=== PATIENT | male | born 1930 | race Caucasian/White ===

== ENCOUNTER 2016-09-28 15:14 | Outpatient (CLI) ==
[2016-06-22 00:29] VITALS: BMI 26.0
--- NOTE | 2016-09-28 16:41 | DI ---
EXAM: Two views of the chest. History: Left lower lobe lung mass. Comparison: Chest radiograph 06/16/2016 Comparison: Chest radiograph 06/25/2016, chest CT 06/21/2016 Findings: Heart is borderline enlarged. Emphysema again noted. Atherosclerotic vascular calcifica tions. Tortuous thoracic aorta. Prominent left hilar shadow and left lower lobe mass or infiltrate . There may be aneurysmal dilatation of the thoracic aorta. Visualized osseous structures unchange d. Impression: Prominent left hilar shadow could indicate lymphadenopathy. Left lower lobe mass or in filtrate may be more prominent. Emphysema.
== END 2016-09-28 15:15 | disposition home or self-care (01) ==
LOC: RAD 15:14
PROVIDERS: ATTEND Internal Medicine Pulmonary Disease
DX: R91.8 Other nonspecific abnormal finding of lung field (principal)

== ENCOUNTER 2016-10-19 15:36 | Inpatient (IN) ==
[2016-10-19] MEDS ORDERED: TYLENOL PO PRN (16:02)
[2016-10-19] MEDS ORDERED: NITROSTAT SL PRN (16:02)
[2016-10-19] MEDS ORDERED: ATROPINE SULFATE PFS IVP PRN (16:02)
[2016-10-19] MEDS ORDERED: MORPHINE 4 MG/ML SYRINGE IVP PRN (16:02)
[2016-10-19] MEDS ORDERED: VISTARIL INJ IM PRN (16:02)
[2016-10-19 16:26] VITALS: BMI 25.7
[2016-10-19 16:38] LABS: BASOPHILS % (AUTO) 0.3 % (0.0-3.0); EOSINOPHILS # (AUTO) 0.2 K/ul (0.0-0.7); EOSINOPHILS % (AUTO) 1.8 % (0.0-7.0); HEMATOCRIT 39.4 % (42.0-52.0); HEMOGLOBIN 12.9 g/dl (14.0-18.0); IMMATURE GRANULOCYTE % (AUTO) 0.4 % (0.0-5.0); LYMPHOCYTES # (AUTO) 1.5 K/uL (0.60-3.4); LYMPHOCYTES % (AUTO) 14.9 (10.0-50.0); MEAN CORPUSCULAR HEMOGLOBIN 29.7 pg (27.0-31.0); MEAN CORPUSCULAR HGB CONC 32.7 (31.8-35.4); MEAN CORPUSCULAR VOLUME 90.6 fl (80.0-94.0); MONOCYTES # (AUTO) 0.9 K/uL (0.4-2.0); MONOCYTES % (AUTO) 8.3 (0-10); NEUTROPHILS # (AUTO) 7.7 K/ul (2.0-6.9); NEUTROPHILS % (AUTO) 74.3; PLATELET COUNT 255 10^3/uL (140-440); RED BLOOD COUNT 4.35 10^6/ul (4.70-6.10); WHITE BLOOD COUNT 10.28 K/ul (4.2-10.2)
[2016-10-19 16:55] LABS: FLU INTERNAL QC INTERNAL QC VALID; RAPID FLU A NEGATIVE (NEGATIVE); RAPID FLU B NEGATIVE (NEGATIVE)
[2016-10-19 17:00] LABS: ALBUMIN 3.2 g/dL (3.4-5.0); ALBUMIN/GLOBULIN RATIO 0.84; ANION GAP 12.7; BILIRUBIN,TOTAL 1.29 mg/dL (0.00-1.20); BUN/CREATININE RATIO 16.96; CALCIUM 8.8 mg/dL (8.2-10.2); CREATININE 1.12 mg/dL (0.60-1.10); POTASSIUM 3.7 mmol/L (3.5-5.1); TROPONIN I 0.02 ng/ml (0.0000-0.4000)
[2016-10-19] MEDS ORDERED: NON-FORMULARY MEDICATION (Warfarin Sodium [Coumadin] 4 MG) PO SCH ×22 (17:00)
[2016-10-19] MEDS: SOLU-MEDROL 40 MG IVP SCH ×2 (17:10→21:34)
[2016-10-19] MEDS: ROCEPHIN 1 GM in SODIUM CHLORIDE 100 ML IV SCH (17:10)
[2016-10-19] MEDS: SODIUM CHLORIDE 1,000 ML IV SCH (17:10)
[2016-10-19] MEDS: COUMADIN PO SCH (17:11)
--- NOTE | 2016-10-19 17:21 | CT ---
EXAM: CT of the chest without contrast History: Cough, short of breath Comparison: Chest radiograph 09/28/2016, chest CT 06/21/2016 Technique: Multiplanar CT images through the thorax were obtained without the administration of IV contrast Findings: Evaluation is limited due to the lack of contrast administration. Heart is mildly enlarg ed. Trace pericardial fluid. Coronary calcifications. Slight interval increase in size of multiple mediastinal lymph nodes measuring up to 1.5 cm. No axillary adenopathy. Evaluation for hilar lymp h nodes is limited due to the lack of contrast administration. There is soft tissue fullness within the right hilar region. Increasing size of left lower lobe mass-like area now containing a central area of density which is probably necrosis. This now measures 4.8 cm x 4.1 cm. The left pleural effusion is again noted and is small. Emphysema again appreciated. Micronodular infiltrates again seen within the rest of the left lower lobe. No pneumothorax. Trace right pleural effusion. Within the visualized upper abdomen, cholelithiasis. Atrophic left kidney. No acute osseous abnorma lities. Sternotomy wires. Impression: 1. Increasing size of left lower lobe lung mass which is suspicious for malignancy. Further evalua tion recommended. 2. Patchy left lower lobe micronodular infiltrates could be infectious or inflammatory or malignant . 3. Small left pleural effusion and trace right pleural effusion. 4. Emphysema. 5. Cholelithiasis. 6. Coronary artery disease. 7. Atrophic left kidney. 8. Mediastinal lymphadenopathy and fullness within the right hilar region could be malignant.
[2016-10-19 17:29] LABS: ABG BASE EXCESS 5 (-2.0-2.0); ABG HCO3 28 (22.0-26.0); ABG PCO2 34.3 mmHg (35-45); ABG PH 7.521 (7.35-7.45); ABG TCO2 29 (22.0-28.0)
[2016-10-19 18:51] LABS: BILIRUBIN,URINE Negative (NEGATIVE); KETONES,URINE Negative (NEGATIVE); LEUKOCYTE ESTERASE ,URINE Negative (NEGATIVE); NITRITE,URINE Negative (NEGATIVE); PROTEIN,URINE Negative (NEGATIVE); URINE, BLOOD Trace-intact (NEGATIVE)
[2016-10-19 19:02] LABS: ADD URINE MICROSCOPIC YES
[2016-10-19] MEDS: HYTRIN PO SCH (20:38)
[2016-10-19] MEDS: DUONEB NEB SCH (21:20)
[2016-10-20 00:30] LABS: BASOPHILS % (AUTO) 0.1 % (0.0-3.0); HEMATOCRIT 37.1 % (42.0-52.0); HEMOGLOBIN 12.2 g/dl (14.0-18.0); IMMATURE GRANULOCYTE % (AUTO) 0.4 % (0.0-5.0); LYMPHOCYTES # (AUTO) 0.6 K/uL (0.60-3.4); LYMPHOCYTES % (AUTO) 6.1 (10.0-50.0); MEAN CORPUSCULAR HEMOGLOBIN 29.1 pg (27.0-31.0); MEAN CORPUSCULAR HGB CONC 32.9 (31.8-35.4); MEAN CORPUSCULAR VOLUME 88.5 fl (80.0-94.0); MONOCYTES # (AUTO) 0.1 K/uL (0.4-2.0); MONOCYTES % (AUTO) 0.9 (0-10); NEUTROPHILS % (AUTO) 92.5; PLATELET COUNT 231 10^3/uL (140-440); RED BLOOD COUNT 4.19 10^6/ul (4.70-6.10); WHITE BLOOD COUNT 9.77 K/ul (4.2-10.2)
[2016-10-20 01:25] LABS: ALBUMIN/GLOBULIN RATIO 0.79; ANION GAP 14.6; BILIRUBIN,TOTAL 1.14 mg/dL (0.00-1.20); BUN/CREATININE RATIO 18.09; CALCIUM 8.9 mg/dL (8.2-10.2); CREATININE 1.05 mg/dL (0.60-1.10); POTASSIUM 3.6 mmol/L (3.5-5.1); TOTAL PROTEIN 6.8 g/dL (5.8-8.1)
[2016-10-20 01:32] LABS: TROPONIN I 0.028 ng/ml (0.0000-0.4000)
[2016-10-20] MEDS: DUONEB NEB SCH ×3 (04:45→21:38)
[2016-10-20] MEDS: PROTONIX PO SCH (05:29)
[2016-10-20] MEDS: LASIX TAB PO SCH (05:29)
[2016-10-20] MEDS: SOLU-MEDROL 40 MG IVP SCH ×3 (05:29→21:03)
[2016-10-20] MEDS: ASPIRIN EC PO SCH (08:46)
[2016-10-20] MEDS: ROCEPHIN 1 GM in SODIUM CHLORIDE 100 ML IV SCH (08:46)
[2016-10-20] MEDS: NORVASC PO SCH (08:46)
[2016-10-20] MEDS: LIPITOR PO SCH (08:46)
[2016-10-20] MEDS: K-DUR PO SCH (08:46)
[2016-10-20] MEDS ORDERED: ATORVASTATIN PO SCH ×21 (09:00)
[2016-10-20] MEDS ORDERED: AMLODIPINE PO SCH ×21 (09:00)
[2016-10-20] MEDS ORDERED: NON-FORMULARY MEDICATION (Potassium Chloride [K-Tab Er] 1 TAB) PO SCH (09:00)
[2016-10-20] MEDS: COUMADIN PO SCH (16:28)
[2016-10-20] MEDS: SODIUM CHLORIDE 1,000 ML IV SCH (18:03)
[2016-10-20] MEDS: HYTRIN PO SCH (20:55)
[2016-10-21] MEDS: DUONEB NEB SCH ×3 (04:58→21:16)
[2016-10-21] MEDS: SOLU-MEDROL 40 MG IVP SCH ×3 (05:18→20:04)
[2016-10-21] MEDS: LASIX TAB PO SCH (06:57)
[2016-10-21] MEDS: PROTONIX PO SCH (06:57)
[2016-10-21 07:51] LABS: BASOPHILS % (AUTO) 0.1 % (0.0-3.0); HEMATOCRIT 35.5 % (42.0-52.0); HEMOGLOBIN 11.8 g/dl (14.0-18.0); IMMATURE GRANULOCYTE % (AUTO) 0.5 % (0.0-5.0); LYMPHOCYTES # (AUTO) 0.6 K/uL (0.60-3.4); LYMPHOCYTES % (AUTO) 4.4 (10.0-50.0); MEAN CORPUSCULAR HEMOGLOBIN 29.5 pg (27.0-31.0); MEAN CORPUSCULAR HGB CONC 33.2 (31.8-35.4); MEAN CORPUSCULAR VOLUME 88.8 fl (80.0-94.0); MONOCYTES # (AUTO) 0.5 K/uL (0.4-2.0); MONOCYTES % (AUTO) 3.6 (0-10); NEUTROPHILS # (AUTO) 11.5 K/ul (2.0-6.9); NEUTROPHILS % (AUTO) 91.4; PLATELET COUNT 227 10^3/uL (140-440); WHITE BLOOD COUNT 12.53 K/ul (4.2-10.2)
[2016-10-21 08:24] LABS: ALBUMIN 2.9 g/dL (3.4-5.0); ALBUMIN/GLOBULIN RATIO 0.78; ANION GAP 15.2; BILIRUBIN,TOTAL 0.45 mg/dL (0.00-1.20); BUN/CREATININE RATIO 26.31; CALCIUM 8.8 mg/dL (8.2-10.2); CREATININE 1.14 mg/dL (0.60-1.10); POTASSIUM 4.2 mmol/L (3.5-5.1); TOTAL PROTEIN 6.6 g/dL (5.8-8.1)
[2016-10-21] MEDS: ROCEPHIN 1 GM in SODIUM CHLORIDE 100 ML IV SCH (09:04)
[2016-10-21] MEDS: ASPIRIN EC PO SCH (09:04)
[2016-10-21] MEDS: LIPITOR PO SCH (09:04)
[2016-10-21] MEDS: NORVASC PO SCH (09:04)
[2016-10-21] MEDS: K-DUR PO SCH (09:05)
[2016-10-21] MEDS ORDERED: LASIX TAB PO SCH (11:20)
[2016-10-21] MEDS: LOVENOX SUBCUT SCH (12:35)
[2016-10-21] MEDS: COUMADIN PO SCH (17:02)
[2016-10-21] MEDS: HYTRIN PO SCH (20:03)
[2016-10-21] MEDS: SODIUM CHLORIDE 1,000 ML IV SCH (21:32)
[2016-10-22 04:46] LABS: BASOPHILS % (AUTO) 0.1 % (0.0-3.0); HEMATOCRIT 34.9 % (42.0-52.0); HEMOGLOBIN 11.4 g/dl (14.0-18.0); IMMATURE GRANULOCYTE % (AUTO) 0.5 % (0.0-5.0); LYMPHOCYTES # (AUTO) 0.7 K/uL (0.60-3.4); LYMPHOCYTES % (AUTO) 4.9 (10.0-50.0); MEAN CORPUSCULAR HEMOGLOBIN 29.2 pg (27.0-31.0); MEAN CORPUSCULAR HGB CONC 32.7 (31.8-35.4); MEAN CORPUSCULAR VOLUME 89.5 fl (80.0-94.0); MONOCYTES # (AUTO) 0.5 K/uL (0.4-2.0); MONOCYTES % (AUTO) 3.5 (0-10); NEUTROPHILS # (AUTO) 13.2 K/ul (2.0-6.9); PLATELET COUNT 243 10^3/uL (140-440); WHITE BLOOD COUNT 14.56 K/ul (4.2-10.2)
[2016-10-22 05:11] LABS: ALBUMIN 2.8 g/dL (3.4-5.0); ALBUMIN/GLOBULIN RATIO 0.9; BILIRUBIN,TOTAL 0.39 mg/dL (0.00-1.20); BUN/CREATININE RATIO 28.57; CALCIUM 8.3 mg/dL (8.2-10.2); CREATININE 1.05 mg/dL (0.60-1.10); TOTAL PROTEIN 5.9 g/dL (5.8-8.1)
[2016-10-22] MEDS: DUONEB NEB SCH ×2 (05:11→14:01)
[2016-10-22] MEDS: PROTONIX PO SCH (05:29)
[2016-10-22] MEDS: SOLU-MEDROL 40 MG IVP SCH ×2 (05:29→12:50)
[2016-10-22] MEDS ORDERED: LASIX TAB PO SCH (06:30)
[2016-10-22] MEDS: LOVENOX SUBCUT SCH (08:31)
[2016-10-22] MEDS: NORVASC PO SCH (08:31)
[2016-10-22] MEDS: ASPIRIN EC PO SCH (08:31)
[2016-10-22] MEDS: K-DUR PO SCH (08:31)
[2016-10-22] MEDS: LIPITOR PO SCH (08:31)
[2016-10-22] MEDS: ROCEPHIN 1 GM in SODIUM CHLORIDE 100 ML IV SCH (08:31)
[2016-10-22 09:51] VITALS: BP 141/80; TEMP 96.9
--- NOTE | 2016-10-22 11:12 | RS.SLPCNOT ---
Speech Case Note Date of Note: 10/22/16 Title: Swallow screen Note: ADVERTISING JOB TITLES reviewed pt's chart and medical hx. Recent pnuemonia, and possible CA in lungs were significant for screening pt for risk of aspiration. ADVERTISING JOB TITLES attempted to observe and question pt regarding PO intake. Pt was in shower when ST arrived. ADVERTISING JOB TITLES discussed risks for aspiration with nursing, RN and FEED RESEARCH TECHNICIAN. RN reported no concerns. FEED RESEARCH TECHNICIAN reported pt coughing with medications, requiring a few seconds to recover. No significant findings with lung sounds, reports of diminished sounds. Pt has been tolerating a regular diet texture with thin liquids for three days in hospital with no reports of aspiration and no changes in lung sounds. ADVERTISING JOB TITLES requested nursing staff to observe pt with PO intake, question pt about swallowing difficulty and report any concerns to ADVERTISING JOB TITLES. ADVERTISING JOB TITLES to assess pt if needed tomorrow this date.
--- NOTE | 2016-10-22 14:12 | PCM.PROG ---
Attending Provider: ATTENDING PROVIDER: Dr. JUICE LR DATE OF SERVICE: 10/22/16 SUBJECTIVE: This 86 year old WHITE/ M was hospitalized 10/19/16. The patient is lying in bed. He states he is doing much better today. Cough is less. He has been up and about without any problems. Discussion carried out with the patient as below. REVIEW OF SYSTEMS: CONSTITUTIONAL: No fever, no chills. ENDOCRINE: No weight loss or weight gain. HEENT: No sinus drainage, no sore throat. CVS: No angina symptoms. No CHF symptoms. No palpitations. No atypical chest pain for CAD. No shortness of breath. RESPIRATORY: No cough, no hemoptysis. GI: No melena. No abdominal pain. No nausea, no vomiting. : No hematuria. No polyuria. SKIN: No rash. No wounds. MUSCULOSKELETAL: No pain. GARDEN TRACTOR MECHANIC: No blackout, no dizziness. No headache. No double vision. PSYCHIATRIC: Not anxious; no depression. No suicidal thoughts. No homicidal thoughts. PHYSICAL EXAMINATION: GENERAL: Sitting up in bed in no distress. VITAL SIGNS: Temperature 96.9 F, Pulse 92, Respiratory Rate 20, BP 141/80, Pulse Ox 97% HEENT: Normocephalic, atraumatic. Mucosa is dry, pallor positive. NECK: No JVP, no carotid bruit. No lymphadenopathy. CARDIAC: S1, S2, no S3. No murmur, gallop or regurgitation. LUNGS: Decreased entry; crackles. ABDOMEN: Soft, non-tender. Bowel sounds active. No rigidity, guarding or CVA tenderness. EXTREMITIES: No clubbing, cyanosis or edema. NEUROLOGIC: Awake, alert and oriented x3. LYMPHATIC: No palpable lymph nodes SKIN: Not dry. Intact. MUSCULOSKELETAL: No joint swelling. LAB REVIEW: 10/22/16 04:43 10/22/16 04:43 10/22/16 04:43: WBC 14.56 H, RBC 3.90 L, Hgb 11.4 L, Hct 34.9 L, MCV 89.5, MCH 29.2, MCHC 32.7, RDW Coeff of Meli 15.2 H, Plt Count 243, Immature Gran % (Auto) 0.5, Neut % (Auto) 91.0, Lymph % (Auto) 4.9 L, Boyle % (Auto) 3.5, Eos % (Auto) 0.0, Baso % (Auto) 0.1, Immature Gran # (Auto) 0.1, Neut # 13.2 H, Lymph # 0.7, Boyle # 0.5, Eos # 0.0, Baso # 0.0, Sodium 143, Potassium 4.0, Chloride 105, Carbon Dioxide 30, Anion Gap 12.0, BUN 30 H, Creatinine 1.05, Estimated GFR ( MDRD) 67.00, BUN/Creatinine Ratio 28.57, Glucose 234 H, Calcium 8.3, Total Bilirubin 0.39, AST 23, ALT 23, Alkaline Phosphatase 68, Total Protein 5.9, Albumin 2.8 L, Globulin 3.1, Albumin/Globulin Ratio 0.90 ASSESSMENT: 1. COPD exacerbation secondary to pneumonia 2. Increase in size of lung mass, which is most likely cancer 3. CAD 4. CABG 5. Hypertension 6. Dyslipidemia 7. Depression PLAN: 1. Discharge the patient home. 2. Keflex 500 mg b.i.d. for 7 more days. 3. Duonebs t.i.d. for one month. 4. Medrol Dosepak. 5. Encouraged the patient to drink lots of fluids. 6. The patient is to see Dr. Kingston, appointment exists but needs to be moved up. Plan and coordination of the patient's care discussed in the presence of Quality Engineer and nurse. EDUCATION: Discussion with the patient concerning increased size of lung mass and the possibility it is cancer; the need to move appointment with Dr. Kingston up. Also , discussed with the patient concerning the need for neb treatments. The patient voices understanding and is agreeable to comply with this advice and case management will set up for treatments and equipment needed. CONDITION: Stable SCRIBED BY: OTONIEL LOUISE, Head Grinder scribed while in presence of service performed by Dr. JUICE LR on 10/22/16 ([id number])
--- NOTE | 2016-10-22 15:31 | PN ---
DATE OF SERVICE: 10/21/16 SUBJECTIVE: The patient's Social Sciences Chair from the [employer] is in the room. Wanted to discuss condition. Otherwise still having cough, get phlegm yellow and green, no fever or chills. Getting out of bed to chair without any problem. REVIEW OF SYSTEMS: CONSTITUTIONAL: No fever, no chills. HEENT: Normal. ENDOCRINE: No weight gain, no weight loss. CVS: No angina symptoms. No CHF symptoms. No palpitations. No atypical chest pain for CAD. No shortness of breath. No PND, no orthopnea. RESPIRATORY: Cough, no hemoptysis. GI: No nausea, no vomiting. No abdominal pain. : No hematuria. No polyuria. MUSCULOSKELETAL:. No joint swelling. PSYCHIATRIC: Not anxious. No depression. No suicidal thoughts. No homicidal thoughts. SKIN: Intact. No rash. PHYSICAL EXAMINATION: V/S: Blood pressure 130/76, respiratory rate 18, heart rate 107 and temperature 96.7. HEENT: Normocephalic, atraumatic. Ears, eyes, nose and throat normal. Mucosa dry. NECK: Supple. No JVD, no carotid bruit. No lymphadenopathy. LUNGS: Decreased basilar crackles. No rales or rhonchi. HEART: S1, S2 normal. No S3. No murmur, gallop or regurgitation. ABDOMEN: Soft, nontender. Bowel sounds active. No rigidity. No rebound or guarding. No CVA tenderness. EXTREMITIES: No clubbing, cyanosis or pedal edema. MUSCULOSKELETAL: No joint swelling. NEUROLOGIC: Awake, alert, oriented times three. No focal deficit. LYMPHATIC: No lymph nodes palpable. SKIN: Intact. Dry LABS: Sodium 142, potassium 4.2, chloride 104, bicarb 27, BUN 30, creatinine 1.14, WBC 12.53, hgb 11.8. hct 35.5 and plt count 227. ASSESSMENT: 1. Community acquired pneumonia, left lower lobe 2. 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 Hypertension 4. Dyslipidemia 5. Coronary artery disease 6. CABG PLAN: 1. Continue the Rocephin 2. Azithromycin 3. Solu-Medrol 4. DUO NEBS 5. Out of bed to chair 6. Decrease the Lasix to 20mg TIME SPENT: More than 30 minutes MTDD
--- NOTE | 2016-10-22 15:46 | CM.DICTOOL ---
ADMISSION: 10/19/16 15:36 DISCHARGE: 10/22/16 DATE OF SERVICE: 10/22/16 FINAL DIAGNOSIS ENLARGING LUNG MASS - LEFT LOWER LUNG (4.8X4.1 CMS) (DR. BURCIAGA) FEVER, LEUKOCYTOSIS COPD/EMPHYSEMA CAD S/P 3 VESSEL CABG ATRIAL FIBRILLATION HYPERTENSION DYSLIPIDEMIA HYPOTHYROIDISM CVA DVT BY HISTORY CATARACT EXTRACTIONS TONSILLECTOMY VASECTOMY APPENDECTOMY LAST VITALS Temp Pulse Resp BP Pulse Ox 96.9 F L 92 H 20 141/80 H 97 10/22/16 09:51 10/22/16 09:51 10/22/16 09:51 10/22/16 09:51 10/22/16 09:51 ACTIVE MEDICATIONS Albuterol/Ipratropium (Duoneb) 1 vial NEB RTTID [facility] Last Admin: 10/22/16 14:01 Dose: 1 vial Amlodipine Besylate (Norvasc) 5 mg PO DAILY [facility] Last Admin: 10/22/16 08:31 Dose: 5 mg Aspirin (Aspirin Ec) 81 mg PO DAILYWM [facility] Last Admin: 10/22/16 08:31 Dose: 81 mg Atorvastatin Calcium (Lipitor) 20 mg PO DAILY [facility] Last Admin: 10/22/16 08:31 Dose: 20 mg Atropine Sulfate (Atropine Sulfate Pfs) 0.5 mg IVP ONCE PRN PRN Reason: Symptomatic Bradycardia Furosemide (Lasix Tab) 40 mg PO QDAC [facility] Last Admin: 10/22/16 05:29 Dose: 20 mg Nitroglycerin (Nitrostat) 0.4 mg SL Q5MIN X 3 DOSES PRN PRN Reason: Chest Pain Pantoprazole Sodium (Protonix) 40 mg PO QDAC [facility] Last Admin: 10/22/16 05:29 Dose: 40 mg Potassium Chloride (K-Dur) 20 meq PO DAILYWM [facility] Last Admin: 10/22/16 08:31 Dose: 20 meq Terazosin HCl (Hytrin) 5 mg PO BEDTIME [facility] Last Admin: 10/21/16 20:03 Dose: 5 mg Warfarin Sodium (Coumadin) 4 mg PO QPM [facility] Last Admin: 10/21/16 17:02 Dose: 4 mg DENOTES MEDICATIONS ADDED DURING THIS STAY THAT WILL BE CONTINUED AT DISCHARGE ALLERGIES No Known Allergies Allergy (Verified 06/21/16 21:48) NEW PRESCRIPTIONS: 1) ALBUTEROL/IPRATROPIUM (DUONEBS), TAKE ONE BREATHING TREATMENT THREE TIMES DAILY FOR ONE MONTH 2) MEDROL DOSE JYOTSNA, TAKE DIRECTED WITH FOOD 3) KEFLEX 500 MG, TAKE ONE TABLET BY MOUTH TWICE DAILY FOR 7 (SEVEN) DAYS SMOKING: NONSMOKER DISEASE SPECIFIC EDUCATION: FEVER LUNG MASS FOLLOW UP WITH DR. BURCIAGA FOLLOW UP THROUGH THE OFFICE NEBULIZER TREATMENTS HOME MEDICATIONS NEW MEDICATIONS LAB REVIEW: 10/22/16 04:43 10/22/16 04:43 10/22/16 04:43: WBC 14.56 H, RBC 3.90 L, Hgb 11.4 L, Hct 34.9 L, MCV 89.5, MCH 29.2, MCHC 32.7, RDW Coeff of Meli 15.2 H, Plt Count 243, Immature Gran % (Auto) 0.5, Neut % (Auto) 91.0, Lymph % (Auto) 4.9 L, Shackelford % (Auto) 3.5, Eos % (Auto) 0.0, Baso % (Auto) 0.1, Immature Gran # (Auto) 0.1, Neut # 13.2 H, Lymph # 0.7, Shackelford # 0.5, Eos # 0.0, Baso # 0.0, Sodium 143, Potassium 4.0, Chloride 105, Carbon Dioxide 30, Anion Gap 12.0, BUN 30 H, Creatinine 1.05, Estimated GFR ( MDRD) 67.00, BUN/Creatinine Ratio 28.57, Glucose 234 H, Calcium 8.3, Total Bilirubin 0.39, AST 23, ALT 23, Alkaline Phosphatase 68, Total Protein 5.9, Albumin 2.8 L, Globulin 3.1, Albumin/Globulin Ratio 0.90 PLAN: DISCHARGE HOME TODAY RETURN TO SEE DR. LR IN 5-7 DAYS. PLEASE CALL TO SCHEDULE YOUR APPOINTMENT ([phone]) KEEP YOUR SCHEDULED APPOINTMENT WITH DR. BURCIAGA ON 10/25/16 AT 10:30 A.M. CONTINUE YOUR HOME MEDICATIONS PER LIST PROVIDED BY THE NURSING STAFF NEW PRESCRIPTIONS: 1) ALBUTEROL/IPRATROPIUM (DUONEBS), TAKE ONE BREATHING TREATMENT THREE TIMES DAILY FOR ONE MONTH 2) MEDROL DOSE JYOTSNA, TAKE DIRECTED WITH FOOD 3) KEFLEX 500 MG, TAKE ONE TABLET BY MOUTH TWICE DAILY FOR 7 (SEVEN) DAYS [facility] WILL DELIVER YOUR NEBULIZER TO YOUR HOME ([phone]) ACTIVITY: GET PLENTY OF REST AT HOME. GRADUALLY INCREASE YOUR ACTIVITY LEVEL ACCORDING TO YOUR TOLERATION. DIET: HEALTHY HEART STAY WELL HYDRATED. DRINK PLENTY OF WATER. SUMMARY: THE PATIENT IS ALERT AND ORIENTED X3. HE CURRENTLY RESIDES AT HOME ALONE. 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 HE IS INDEPENDENT WITH ADL'S. HE TELLS ME HE DOES NOT RELY ON ANY DME AT THIS TIME. HE DESIRES TO RETURN TO HIS HOME AT DISCHARGE. HIS SKIN TURGOR IS INTACT AND WITHOUT DECUBITUS ULCERS AT DISCHARGE. HE IS AFEBRILE AND STABLE FOR DISCHARGE HOME. HE IS AWARE AND AGREEABLE FOR DISCHARGE TODAY. JUICE LR M.D.
--- NOTE | 2016-10-22 15:53 | PN ---
DATE OF SERVICE: 10/20/16 SUBJECTIVE: The patient was admitted with the bronchitis and the COPD. CAT scan showed the pneumonia, community acquired and also questionable lung cancer which was discussed with the patient. The patient is some sad but he said that he was expecting something. REVIEW OF SYSTEMS: CONSTITUTIONAL: No fever, no chills. HEENT: Normal. ENDOCRINE: No weight gain, no weight loss. CVS: No angina symptoms. No CHF symptoms. No palpitations. No atypical chest pain for CAD. No shortness of breath. No PND, no orthopnea. RESPIRATORY: Still coughing and getting a lot phlegm, no hemoptysis. GI: No nausea, no vomiting. No abdominal pain. : No hematuria. No polyuria. MUSCULOSKELETAL:. No joint swelling. PSYCHIATRIC: Not anxious. No depression. No suicidal thoughts. No homicidal thoughts. SKIN: Intact. No rash. PHYSICAL EXAMINATION: V/S: blood pressure 123/73, respiratory rate 15, heart rate 91 and temperature 97.0. HEENT: Normocephalic, atraumatic. Ears, eyes, nose and throat normal. Mucosa dry. Pallor positive. No icterus. NECK: Supple. No JVD, no carotid bruit. No lymphadenopathy. LUNGS:Decreased and basilar crackles. No rales or rhonchi. HEART: S1, S2 normal. No S3. No murmur, gallop or regurgitation. ABDOMEN: Soft, nontender. Bowel sounds active. No rigidity. No rebound or guarding. No CVA tenderness. EXTREMITIES: No clubbing, cyanosis or pedal edema. MUSCULOSKELETAL: No joint swelling. NEUROLOGIC: Awake, alert, oriented times three. No focal deficit. LYMPHATIC: No lymph nodes palpable. SKIN: Intact. LABS: WBC 9.77, hgb 12.2, hct 37.1, plt count 231, sodium 139, potassium 3.6, chloride 101, bicarb 27, BUN 19, creatinine 1.05 and glucose 209 ASSESSMENT: 1. Left lower lobe pneumonia, community acquired 2. Lung mass, most likely suspicion for the malignancy with lymphadenopathy 3. Anemia 4. Hypertension 5. Dyslipidemia 6. Coronary artery disease 7. CABG PLAN: 1. Continue Rocephin, Azithromycin, Lovenox 2. DUO NEBS 3. Out of bed to chair activity as tolerated. TIME SPENT: More than 30 minutes MTDD
--- NOTE | 2016-10-25 09:57 | HP ---
DATE OF SERVICE: 10/19/16 REASON FOR HOSPITALIZATION/HISTORY OF PRESENT ILLNESS: Been having fever, not feeling good. Still coughing, congestion, getting sputum yellow/green. Sinus drainage, some shortness of breath. Decreased urine and not eating much. REVIEW OF SYSTEMS: CONSTITUTIONAL: Fever and fatigue. HEENT: Sinus drainage, no sore throat. RESPIRATORY: Cough, no congestion. CARDIOVASCULAR: No atypical chest pain for coronary artery disease. No angina , CHF symptoms, palpitations. Shortness of breath. GASTROINTESTINAL: No melena or abdominal pain. No GERD. GENITOURINARY: No hematuria, no prostatism, no polyuria. FOOD PRODUCTION ASSOCIATE: No blackout, no dizziness, no headache, no double vision. Gait: Slow. MUSCULOSKELETAL: Osteoarthritis pain, no joint swelling. ENDOCRINE: No weight loss, no weight gain. SKIN: Not dry, no rash. PSYCHIATRIC: Anxious, no depression, no suicidal thoughts, no homicidal thoughts. SOCIAL HISTORY: Marital Status: lives alone. Alcohol Usage: No. Tobacco Usage: No. Family History not significant. PAST SURGICAL HISTORY: CABG 2007 Bilateral cataract Appendectomy Tonsillectomy Hernia repair Hemorrhoid surgery MEDICATIONS: Hytrin 5mg PO daily K-Tab one PO daily Amlodipine-Atorvast 5-20mg PO daily Coumadin 4mg PO QPM Lasix 40mg PO QDAC Nitroglycerin 0.4mg SL PRN Protonix 40mg PO daily ALLERGIES: None PHYSICAL EXAMINATION: V/S: Pulse 70, blood pressure 122/58, temperature 100 and pulse ox 95%. GENERAL APPEARANCE: Oriented times three. Sick looking male sitting in chair. HEENT: Normal. NECK: No JVP, no bruits. RESPIRATORY: Clear with decreased basal crackles. CARDIOVASCULAR: S1, S2, no S3, no murmurs. No cyanosis, clubbing. No ascites. GI/ABDOMEN: No tenderness. Bowel sounds are active. EXTREMITIES: edema, pulses +1, equal. FOOD PRODUCTION ASSOCIATE: Deep tendon reflexes, sensory, motor and gait all normal. RECTAL: Colonoscopy 06/22 Dr. Parish VIDAL. PROSTATE: 11/19 (0.5). LABS: INR 2.4 ASSESSMENT: 1. Fever rule out pneumonia and UTI 2. Hypertension 3. Coronary artery disease, status post stent 4. Congestive heart failure 5. Dyslipidemia 6. History of CVA 7. History of DVT 8. Diabetes Mellitus, type 2 9. History of Atrial fibrillation 10.PPM PLAN: 1. Admit to regular floor with telemetry protocol 2. CBC, CMP, U/A , D-dimer and ABG on room air 3. Rapid flu A7B 4. CT chest without contrast 5. IV fluids at 40ml per hour 6. Diet cardiac 7. Rocephin 1 gram IV daily 8. DUO NEBS three times a day 9. Solu-Medrol 40 IV Q 8 hours 10. Continue home medications. TIME SPENT: More than 70 minutes. MTDD
--- NOTE | 2016-10-25 13:19 | DS ---
DATE OF SERVICE: 10/22/16 FINAL DIAGNOSIS: 1. COPD exacerbation secondary to the pneumonia and enlarged lung mass, left lower lung 4.8x4.1cm as followed by Dr. Kingston 2. Coronary artery disease status post CABG 3. Atrial fibrillation 4. Hypertension 5. Dyslipidemia 6. Hypothyroidism 7. CVA 8. DVT by history 9. Cataract extraction 10.Tonsillectomy 11.Vasectomy 12.Appendectomy VITALS: Temperature 96.9, pulse 92, respiratory 20, blood pressure 141/80 and pulse ox 97% DISCHARGE INSTRUCTIONS: Discharge the patient home. Continue the rest of the home medications. Keep scheduled appointment with Dr. Kingston. MEDICATIONS AT DISCHARGE: Norvasc Aspirin Lipitor Lasix Protonix Potassium Hytrin Coumadin ALLERGIES: No known allergies NEW PRESCRIPTIONS: DUO NEBS two to three times per day for one month Medrol Dosepak Keflex 500mg twice a day for 7 days. DIET INSTRUCTIONS: Healthy heart Stay well hydrated. Drink plenty of water. ACTIVITY: Get plenty of rest at home. Gradually increase activity level according to toleration. SMOKING: Non-smoker DISEASE SPECIFIC EDUCATION: Lung mass Risk of and probability of lung cancer and the need for the followup with Dr. Kingston been discussed. snf anticoagulation and risk of GI bleed and intracranial bleed been discussed with the patient. HOSPITAL COURSE: Juvenal Franco who is a 86 year old male who lives by himself. He came to the office for the cough, congestion and fever. He was hypoxic and fever. At that time the patient was admitted to the hospital. CT of chest showed increase in the lung mass with multiple lymph nodes questionable for the lung cancer, patchy left lower micronodular infiltrates questionable for the pneumonia. The patient was started on the Rocephin, Azithromycin, DUO NEBS and steroids. With the given treatment and the IV fluids the patient was more up and about walking. Did not have any problem. He did complain that sometimes when he eats he did have coughing episodes, otherwise gradually he improved. The patient had seen Dr. Kingston in the past for the lung mass but it was smaller in size and Dr. Kingston told him to come back later but he never went back to him. This time we did stress on the lung mass size as it is increased significantly from the previous and with defused lymph nodes which is appearing likely lung cancer which was discussed with the patient in detail. The patient made the promised that he will be going back to Dr. Kingston. With senior care anticoagulation the risk of GI bleed and intracranial bleed been discussed and verbalized understanding. TIME SPENT: More than 45 minutes today. ELIDIA
== END 2016-10-22 15:25 | disposition home or self-care (01) | DRG 194 ==
LOC: MEDSURG B 15:36
PROVIDERS: ADMIT Emergency Medicine; ATTEND Emergency Medicine
DX: J18.9 Pneumonia, unspecified organism (principal); J44.1 Chronic obstructive pulmonary disease with (acute) exacerbation; C34.92 Malignant neoplasm of unspecified part of left bronchus or lung; R91.8 Other nonspecific abnormal finding of lung field; R59.0 Localized enlarged lymph nodes; I25.10 Atherosclerotic heart disease of native coronary artery without angina pectoris; I48.91 Unspecified atrial fibrillation; I10 Essential (primary) hypertension; E78.5 Hyperlipidemia, unspecified; E03.9 Hypothyroidism, unspecified; Z95.1 Presence of aortocoronary bypass graft; Z86.73 Personal history of transient ischemic attack (TIA), and cerebral infarction without residual deficits; Z79.01 Long term (current) use of anticoagulants; Z79.899 Other long term (current) drug therapy
CPT/HCPCS: 36415; 80053; 81001; 82550; 82803; 83874; 84484; 85025; 85379; 87804; 93005; 93010; 94640

== ENCOUNTER 2016-11-22 19:07 | Inpatient (IN) ==
[2016-11-22] MEDS ORDERED: SODIUM CHLORIDE 1,000 ML IV STA ×2 (19:22→19:32)
[2016-11-22] MEDS ORDERED: DUONEB NEB STA (19:32)
--- NOTE | 2016-11-22 19:32 | ED.PDOC ---
General ED Provider: Dr. MUKESH JEWELL Chief Complaint: Altered Mental Status Stated Complaint: Patient is an 86 year old male who was recently discharged for pneumonia comes to the Er brought by "cleaning girl". with complains of no feeling well but unable to describe. States is coughing but non productive. Has not been eating for one week. Time Seen by Physician: 19:29 Information Source: Patient Exam Limitations: Altered mental status Primary Care Provider: ANNAMARIA FRYE Nursing and Triage Documentation Reviewed and Agree: Yes Miscellaneous Complaint Exam - Complex/Multi-System Complaint/Exam Onset/Duration: 2 days Symptoms Are: Still present Episodes Lasting: Weeks (1) Initial Severity: Moderate Current Severity: Moderate Location of Pain: chest Character: unable to describe Associated Signs and Symptoms: Reports: Decreased responsiveness, Dizziness, Weakness, Decreased oral intake Related History: Recent Illness, Recent Hospitilization (for pneumonia ) Recent Echo/LV Function: No Respiratory Distress: None JVD Present: No Tachypnea Present: No Stridor Present: No Abdominal Findings: Present: Normal findings Glascow Coma Scale (see protocol): 15 Meningeal Signs Positive: No Focal Weakness: Present: None Focal Sensory Loss: Present: None Gait: Normal Gag Reflex Present: No Babinski Sign: Negative Right, Negative Left Skin Findings: Present: Normal findings Joint Swelling Present: No In-Dwelling Device Present: No Differential Diagnosis: CVA, Metabolic Abnormality, Sepsis, UTI Quality Indicators for Cardiac Chest Pain: EKG in 10min. Quality Indicators for AMI: EKG in 10min. Quality Indicators For Pneumonia/CAP: Blood Cultures-SCU admit, Antibiotics in 6hr-admit, Empiric Antibiotic Rx, Mental status assessed Quality Indicator For Non-Traumatic Chest Pain/Syncope: EKG Performed Review of Systems - Review Of Systems Constitutional: Reports: Fever, Weakness, Loss of appetite Respiratory: Reports: Cough, Short of air Cardiac: Reports: Chest pain, Lightheadedness GI: Reports: Poor fluid intake : Reports: No symptoms Neurological: Reports: Anxiety All Other Systems: Other (limited due to condition) Past Medical History - Past Medical History Endocrine: Reports: Dyslipidemia Cardiovascular: Reports: Hypertension, A-Fib Respiratory: Reports: Pneumonia, Unknown Hematological: Reports: None Gastrointestinal: Reports: GERD Genitourinary: Reports: Unknown Neuro/Psych: Reports: Unknown Musculoskeletal: Reports: Arthritis Cancer: Reports: Skin - Surgical History General Surgical History: Reports: Cholecystectomy, Tonsillectomy, Adenoidectomy , CABG, Other (bilateral cataract, Bilateral Lasix ) - Family History Family History: Reports: Unknown - Social History Smoking Status: Former smoker Hx Substance Use: No Alcohol Screening: None - Immunizations Tetanus Shot up to Date: No Physical Exam - Physical Exam Appearance: Ill-appearing Ill-appearing: Severe Pain Distress: Mild Eyes: MIKE, EOMI, Conjunctiva clear ENT: Dry mucosa Neck: Supple Respiratory: Breath sounds diminished, Crackles (at the bases ) Cardiovascular: Irregular rhythm, Tachycardia GI/: Soft, Nontender, No masses, Bowel sounds normal, No Organomegaly Musculoskeletal: Normal strength, ROM intact, No edema, No calf tenderness Skin: Warm, Dry, Normal color Neurological: Sensation intact, Motor intact, Oriented (x2 ) Psychiatric: Anxious Interpretation - Radiology Interpretation Radiology Interpretation By: Radiologist Radiology Results: No acute changes Exam Interpreted: CT Scan - Spanish Translator Rate: Tachy Rhythm: Other Ectopy: PVCs - EKG Interpretation Time of EKG #1: 19:24 Rate: Tachy Rhythm: Other (Atrial Fib) Ectopy: PVCs Re-Evaluation - Re-Evaluation Time of Re-Evaluation: 21:34 Status: Improved Physician Notification - Case Discussed Physician Notified: [email or web address] Time of Notification: 21:20 (admit for observation) Critical Care Note - Critical Care Note Total Time (mins): 30 Course - Course Hematology/Chemistry: 11/23/16 04:00 11/23/16 04:00 Orders, Labs, Meds: Lab Review 11/22/16 11/22/16 11/22/16 19:22 19:25 20:38 WBC 19.92 H RBC 4.84 Hgb 14.0 Hct 42.4 MCV 87.6 MCH 28.9 MCHC 33.0 RDW Coeff of Meli 15.5 H Plt Count 274 Immature Gran % (Auto) 0.5 Neut % (Auto) 82.5 Lymph % (Auto) 9.0 L Long % (Auto) 6.7 Eos % (Auto) 1.0 Baso % (Auto) 0.3 Immature Gran # (Auto) 0.1 Neut # 16.4 H Lymph # 1.8 Long # 1.3 Eos # 0.2 Baso # 0.1 PT 17.5 H INR 1.70 D-Dimer 5.64 H Puncture Site Lb O2 Saturation 91.0 L ABG pH 7.510 H* ABG pCO2 38.6 ABG pO2 56.0 L* ABG HCO3 30.8 H ABG Total CO2 32 H ABG Base Excess 8 H Antonio Test + FiO2 % 21.0 Sodium 140 Potassium 4.0 Chloride 97 L Carbon Dioxide 35 H Anion Gap 12.0 BUN 36 H Creatinine 1.20 H Estimated GFR (MDRD) 57.00 BUN/Creatinine Ratio 30.00 Glucose 135 H Lactic Acid 12.1 Calcium 9.6 Total Bilirubin 1.36 H AST 28 ALT 22 Alkaline Phosphatase 88 Total Creatine Kinase 25 Troponin I 0.0500 B-Natriuretic Peptide 413 H Total Protein 7.2 Albumin 2.8 L Globulin 4.4 Albumin/Globulin Ratio 0.64 Procalcitonin < 0.05 Urine Color Urine Clarity Urine pH Ur Specific [place] Urine Protein Urine Glucose (UA) Urine Ketones Urine Blood Urine Nitrite Urine Bilirubin Urine Urobilinogen Ur Leukocyte Esterase Urine Microscopic RBC Ur Squamous Epith Cells Amorphous Sediment Hyaline Casts Urine Mucus 11/22/16 20:55 WBC RBC Hgb Hct MCV MCH MCHC RDW Coeff of Meli Plt Count Immature Gran % (Auto) Neut % (Auto) Lymph % (Auto) Long % (Auto) Eos % (Auto) Baso % (Auto) Immature Gran # (Auto) Neut # Lymph # Long # Eos # Baso # PT INR D-Dimer Puncture Site O2 Saturation ABG pH ABG pCO2 ABG pO2 ABG HCO3 ABG Total CO2 ABG Base Excess Antonio Test FiO2 % Sodium Potassium Chloride Carbon Dioxide Anion Gap BUN Creatinine Estimated GFR (MDRD) BUN/Creatinine Ratio Glucose Lactic Acid Calcium Total Bilirubin AST ALT Alkaline Phosphatase Total Creatine Kinase Troponin I B-Natriuretic Peptide Total Protein Albumin Globulin Albumin/Globulin Ratio Procalcitonin Urine Color Yellow Urine Clarity Clear Urine pH 7.0 Ur Specific [place] 1.015 Urine Protein 1+ Urine Glucose (UA) Negative Urine Ketones Negative Urine Blood Trace-intact Urine Nitrite Negative Urine Bilirubin Negative Urine Urobilinogen 4.0 Ur Leukocyte Esterase Negative Urine Microscopic RBC 5-10 Ur Squamous Epith Cells 5-10 Amorphous Sediment 1+ Hyaline Casts 2-5 Urine Mucus 1+ Orders Category Date Time Status PLACE PATIENT OBSERVATION .TO MEDS[facility] (MONITORED BED ADMISSION 11/22/16 21: 36 Completed ) ABG DRAW REQUEST Stat CARDIO 11/22/16 19:23 Completed EKG-(ED ONLY) Stat CARDIO 11/22/16 19:22 Completed NEBULIZER TREATMENT Routine CARDIO 11/22/16 21:40 Active NEBULIZER TREATMENT Stat CARDIO 11/22/16 19:32 Completed ACTIVITY .BR with BRP CARE 11/22/16 21:38 Active INTAKE & OUTPUT Q8HR CARE 11/22/16 21:36 Active TELEMETRY MONITORING TELE CARE 11/22/16 21:37 Active VITAL SIGNS Q4HR CARE 11/22/16 21:37 Active 2 GRAM SODIUM DIET DIETARY 11/22/16 Breakfast Ordered ED IV/MEDIPORT/POWERPORT .ONCE EMERGENCY 11/22/16 19:22 Active ABG Stat LAB 11/22/16 19:22 Completed B-TYPE NATRIURETIC PEPTIDE Stat LAB 11/22/16 19:25 Completed BASIC METABOLIC PANEL DAILY@0600 LAB 11/23/16 04:00 Completed BASIC METABOLIC PANEL DAILY@0600 LAB 11/24/16 06:00 Ordered BASIC METABOLIC PANEL DAILY@0600 LAB 11/25/16 06:00 Ordered BASIC METABOLIC PANEL DAILY@0600 LAB 11/26/16 06:00 Ordered BASIC METABOLIC PANEL DAILY@0600 LAB 11/27/16 06:00 Ordered BASIC METABOLIC PANEL DAILY@0600 LAB 11/28/16 06:00 Ordered BASIC METABOLIC PANEL DAILY@0600 LAB 11/29/16 06:00 Ordered BASIC METABOLIC PANEL DAILY@0600 LAB 11/30/16 06:00 Ordered BASIC METABOLIC PANEL DAILY@0600 LAB 12/01/16 06:00 Ordered BASIC METABOLIC PANEL DAILY@0600 LAB 12/02/16 06:00 Ordered BASIC METABOLIC PANEL DAILY@0600 LAB 12/03/16 06:00 Ordered BASIC METABOLIC PANEL DAILY@0600 LAB 12/04/16 06:00 Ordered BASIC METABOLIC PANEL DAILY@0600 LAB 12/05/16 06:00 Ordered BASIC METABOLIC PANEL DAILY@0600 LAB 12/06/16 06:00 Ordered BASIC METABOLIC PANEL DAILY@0600 LAB 12/07/16 06:00 Ordered BASIC METABOLIC PANEL DAILY@0600 LAB 12/08/16 06:00 Ordered BASIC METABOLIC PANEL DAILY@0600 LAB 12/09/16 06:00 Ordered BASIC METABOLIC PANEL DAILY@0600 LAB 12/10/16 06:00 Ordered BASIC METABOLIC PANEL DAILY@0600 LAB 12/11/16 06:00 Ordered BASIC METABOLIC PANEL DAILY@0600 LAB 12/12/16 06:00 Ordered BLOOD CULTURE Stat LAB 11/22/16 20:38 Received CBC W/ AUTO DIFF DAILY@0600 LAB 11/24/16 06:00 Ordered CBC W/ AUTO DIFF DAILY@0600 LAB 11/25/16 06:00 Ordered CBC W/ AUTO DIFF DAILY@0600 LAB 11/26/16 06:00 Ordered CBC W/ AUTO DIFF DAILY@0600 LAB 11/27/16 06:00 Ordered CBC W/ AUTO DIFF DAILY@0600 LAB 11/28/16 06:00 Ordered CBC W/ AUTO DIFF DAILY@0600 LAB 11/29/16 06:00 Ordered CBC W/ AUTO DIFF DAILY@0600 LAB 11/30/16 06:00 Ordered CBC W/ AUTO DIFF DAILY@0600 LAB 12/01/16 06:00 Ordered CBC W/ AUTO DIFF DAILY@0600 LAB 12/02/16 06:00 Ordered CBC W/ AUTO DIFF DAILY@0600 LAB 12/03/16 06:00 Ordered CBC W/ AUTO DIFF DAILY@0600 LAB 12/04/16 06:00 Ordered CBC W/ AUTO DIFF DAILY@0600 LAB 12/05/16 06:00 Ordered CBC W/ AUTO DIFF DAILY@0600 LAB 12/06/16 06:00 Ordered CBC W/ AUTO DIFF DAILY@0600 LAB 12/07/16 06:00 Ordered CBC W/ AUTO DIFF DAILY@0600 LAB 12/08/16 06:00 Ordered CBC W/ AUTO DIFF DAILY@0600 LAB 12/09/16 06:00 Ordered CBC W/ AUTO DIFF DAILY@0600 LAB 12/10/16 06:00 Ordered CBC W/ AUTO DIFF DAILY@0600 LAB 12/11/16 06:00 Ordered CBC W/ AUTO DIFF DAILY@0600 LAB 12/12/16 06:00 Ordered CBC W/ AUTO DIFF Stat LAB 11/22/16 19:25 Completed COMPREHENSIVE METABOLIC PANEL Stat LAB 11/22/16 19:25 Completed CREATINE KINASE Q8H LAB 11/23/16 04:00 Completed CREATINE KINASE Q8H LAB 11/23/16 11:45 Ordered CREATINE KINASE Stat LAB 11/22/16 19:25 Completed D-DIMER Stat LAB 11/22/16 19:25 Completed LACTIC ACID Stat LAB 11/22/16 20:38 Completed PROCALCITONIN Stat LAB 11/22/16 20:38 Completed PT WITH INR DAILY@0600 LAB 11/23/16 04:00 Completed PT WITH INR DAILY@0600 LAB 11/24/16 06:00 Ordered PT WITH INR DAILY@0600 LAB 11/25/16 06:00 Ordered PT WITH INR DAILY@0600 LAB 11/26/16 06:00 Ordered PT WITH INR DAILY@0600 LAB 11/27/16 06:00 Ordered PT WITH INR DAILY@0600 LAB 11/28/16 06:00 Ordered PT WITH INR DAILY@0600 LAB 11/29/16 06:00 Ordered PT WITH INR DAILY@0600 LAB 11/30/16 06:00 Ordered PT WITH INR DAILY@0600 LAB 12/01/16 06:00 Ordered PT WITH INR DAILY@0600 LAB 12/02/16 06:00 Ordered PT WITH INR DAILY@0600 LAB 12/03/16 06:00 Ordered PT WITH INR DAILY@0600 LAB 12/04/16 06:00 Ordered PT WITH INR DAILY@0600 LAB 12/05/16 06:00 Ordered PT WITH INR DAILY@0600 LAB 12/06/16 06:00 Ordered PT WITH INR DAILY@0600 LAB 12/07/16 06:00 Ordered PT WITH INR DAILY@0600 LAB 12/08/16 06:00 Ordered PT WITH INR DAILY@0600 LAB 12/09/16 06:00 Ordered PT WITH INR DAILY@0600 LAB 12/10/16 06:00 Ordered PT WITH INR DAILY@0600 LAB 12/11/16 06:00 Ordered PT WITH INR DAILY@0600 LAB 12/12/16 06:00 Ordered PT WITH INR Stat LAB 11/22/16 19:25 Completed TROPONIN I Q8H LAB 11/23/16 04:00 Completed TROPONIN I Q8H LAB 11/23/16 11:45 Ordered TROPONIN I Stat LAB 11/22/16 19:25 Completed URINALYSIS C & S IF INDICATED Stat LAB 11/22/16 20:55 Completed 0.9 % Sodium Chloride [Saline Flush] MEDS 11/22/16 19:22 Active 1 syr IVF PRN PRN Ipratropium/Albuterol Neb [Duoneb] MEDS 11/22/16 19:32 Discontinued 1 vial NEB ONCE STA Ipratropium/Albuterol Neb [Duoneb] MEDS 11/23/16 06:00 Active 1 vial NEB RTQID Sodium Chloride 0.9% [Sodium Chloride] 1,000 ml MEDS 11/22/16 22:00 Active IV 125 mls/hr Sodium Chloride 0.9% [Sodium Chloride] 1,000 ml MEDS 11/22/16 19:32 Discontinued IV BOLUS RESUSCITATION STATUS Routine OTHERS 11/22/16 21:[address] CHEST W/O CONTRAST Stat RADS 11/22/16 19:[address] HEAD W/O CONTRAST Stat RADS 11/22/16 19:24 Completed OT CONSULTATION Routine THERAPIES 11/22/16 Ordered PT CONSULT Routine THERAPIES 11/22/16 Ordered Medications Generic Name Dose Route Start Last Admin Trade Name Freq PRN Reason Stop Dose Admin Albuterol/Ipratropium 1 vial 11/23/16 06:00 11/23/16 04:48 Duoneb NEB 1 vial RTQID BERNARDA Administration Sodium Chloride 1,000 mls @ 125 mls/hr 11/22/16 22:00 11/23/16 06:13 Sodium Chloride IV 125 mls/hr .Q8H BERNARDA Administration Nitroglycerin 0.4 mg 11/22/16 21:41 Nitrostat SL Q5MIN X 3 DOSES PRN chest pain Non-Formulary Medication 3 mg 11/23/16 17:00 Warfarin Sodium [Coumadin] PO QPM BERNARDA Pantoprazole Sodium 40 mg 11/24/16 06:30 Protonix PO QDAC BERNARDA Sodium Chloride 1 syr 11/22/16 19:22 11/22/16 19:32 Saline Flush IVF 1 syr PRN PRN Administration To flush IV Terazosin HCl 5 mg 11/23/16 09:00 Hytrin PO DAILY BERNARDA Discontinued Medications Generic Name Dose Route Start Last Admin Trade Name Freq PRN Reason Stop Dose Admin Albuterol/Ipratropium 1 vial 11/22/16 19:32 11/22/16 20:00 Duoneb NEB 11/22/16 19:33 1 vial ONCE STA Administration Albuterol/Ipratropium 1 vial 11/22/16 22:00 11/22/16 23:15 Duoneb NEB Not Given RTQ8H BERNARDA Sodium Chloride 1,000 mls @ 1,000 mls/hr 11/22/16 19:32 11/22/16 19:36 Sodium Chloride IV 11/22/16 20:31 1,000 mls/hr BOLUS STA Administration Non-Formulary Medication 4 mg 11/23/16 17:00 Warfarin Sodium [Coumadin] PO QPM BERNARDA Pantoprazole Sodium 40 mg 11/23/16 09:00 Protonix PO DAILY BERNARDA Pantoprazole Sodium 40 mg 11/23/16 06:30 11/23/16 06:12 Protonix PO 40 mg QDAC BERNARDA Administration Vital Signs: Temp Pulse Resp BP Pulse Ox 11/22/16 19:12 100.2 F H 116 H 24 125/66 92 L Departure - Departure Time of Disposition: 21:35 Disposition: PLACED OBSERVATION Discharge Problem: Dehydration, Weakness generalized Condition: Fair Pt referred to PMD for follow-up: No (admitted ) Allergies/Adverse Reactions: Allergies No Known Allergies Allergy (Verified 11/22/16 19:41) Home Medications: Ambulatory Orders Amlodipine/Atorvastatin [Amlodipine-Atorvast 5-20 mg] 1 each PO DAILY 03/16/13 Potassium Chloride [K-Tab] 1 tab PO DAILY 03/16/13 Terazosin HCl [Hytrin] 5 mg PO DAILY 03/16/13 Warfarin Sodium [Coumadin] 3 mg PO QPM 09/21/14 Furosemide [Lasix Tab] 40 mg PO QDAC 06/21/16 Nitroglycerin 0.4 mg SL PRN PRN 10/19/16 Pantoprazole Sodium [Protonix] 40 mg PO QDAC 10/19/16 Ipratropium/Albuterol Neb [Duoneb] 1 vial NEB RTQ8H #90 vial.neb 10/22/16
[2016-11-22 19:33] LABS: BASOPHILS # (AUTO) 0.1 K/uL (0-0.2); BASOPHILS % (AUTO) 0.3 % (0.0-3.0); EOSINOPHILS # (AUTO) 0.2 K/ul (0.0-0.7); HEMATOCRIT 42.4 % (42.0-52.0); IMMATURE GRANULOCYTE % (AUTO) 0.5 % (0.0-5.0); LYMPHOCYTES # (AUTO) 1.8 K/uL (0.60-3.4); MEAN CORPUSCULAR HEMOGLOBIN 28.9 pg (27.0-31.0); MEAN CORPUSCULAR VOLUME 87.6 fl (80.0-94.0); MONOCYTES # (AUTO) 1.3 K/uL (0.4-2.0); MONOCYTES % (AUTO) 6.7 (0-10); NEUTROPHILS # (AUTO) 16.4 K/ul (2.0-6.9); NEUTROPHILS % (AUTO) 82.5; PLATELET COUNT 274 10^3/uL (140-440); RED BLOOD COUNT 4.84 10^6/ul (4.70-6.10); WHITE BLOOD COUNT 19.92 K/ul (4.2-10.2)
[2016-11-22 19:41] LABS: ABG BASE EXCESS 8 (-2.0-2.0); ABG HCO3 30.8 (22.0-26.0); ABG PCO2 38.6 mmHg (35-45); ABG TCO2 32 (22.0-28.0)
[2016-11-22 19:57] LABS: ALBUMIN 2.8 g/dL (3.4-5.0); ALBUMIN/GLOBULIN RATIO 0.64; BILIRUBIN,TOTAL 1.36 mg/dL (0.00-1.20); CALCIUM 9.6 mg/dL (8.2-10.2); CREATININE 1.2 mg/dL (0.60-1.10); TOTAL PROTEIN 7.2 g/dL (5.8-8.1)
[2016-11-22 19:58] LABS: TROPONIN I 0.05 ng/ml (0.0000-0.4000)
[2016-11-22 20:11] LABS: PROTHROMBIN TIME 17.5 SEC (9.3-11.0)
--- NOTE | 2016-11-22 20:29 | CT ---
EXAM: CT scan of the chest without contrast HISTORY: Chest pain TECHNIQUE: Imaging of the chest was performed without intravenous contrast. 5 mm thin axial images and coronal and sagittal reconstructions were provided for interpretation. Comparison 10/19/2016 CT scan of the chest. FINDINGS: A mass lesion is again seen in the left lower lobe of the lung seen on axial image number 35. The lesion measures up to 4.6 cm AP, 3.9 cm transverse and this is similar in size when compar ed to previous study. Emphysematous changes are again seen within the lungs. Heart is normal size. Enlarged lymph nodes are seen throughout the mediastinum. The lesions appear to be increasing in size when compared to previous study. The most prominent lesion is identified anterior to the trach ea at the level of the yg measuring 2.1 cm along the short axis. There is atherosclerotic calcif ication of the thoracic aorta and coronary arteries. There is a small left pleural effusion. No lyt ic or blastic lesions are seen within the osseous structures. There has been previous midline hernández otomy. There is atrophy of the left kidney. There is a large calcified gallstone. IMPRESSION: Left lower lobe mass-like opacity is again seen, concerning for malignancy. Small left pleural effusion. Interval increasing size of mediastinal lymph nodes concerning for metastatic disease.
--- NOTE | 2016-11-22 20:38 | CT ---
EXAM: CT scan brain without contrast HISTORY: Disorientation COMPARISON: CT scan brain 04/25/2013 FINDINGS: Contiguous axial images were obtained from the skull base to the convexities without cont rast utilizing 5-mm collimation. Sagittal and coronal reconstructions were imaged and reviewed.. Th e ventricles and CSF spaces are prominent compatible with age appropriate atrophy. There is moderat e periventricular hypodensity noted compatible with chronic microvascular disease. There is a remot e lacunar infarct within the left rodriguez radiata. There are no acute intracranial findings. Athero sclerotic changes are seen involving the bilateral vertebral and cavernous internal carotid arteries . Several air cells are opacified posteriorly within the right ethmoid sinus. Mastoid air cells ar e clear. 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 ASVD. Benign sinus disease.
[2016-11-22 21:03] LABS: BILIRUBIN,URINE Negative (NEGATIVE); KETONES,URINE Negative (NEGATIVE); LEUKOCYTE ESTERASE ,URINE Negative (NEGATIVE); NITRITE,URINE Negative (NEGATIVE); PROTEIN,URINE 1+ (NEGATIVE); URINE, BLOOD Trace-intact (NEGATIVE)
[2016-11-22 21:16] LABS: ADD URINE MICROSCOPIC YES
[2016-11-22] MEDS: SODIUM CHLORIDE 1,000 ML IV SCH (21:30)
[2016-11-22] MEDS ORDERED: NITROSTAT SL PRN (21:41)
[2016-11-22] MEDS ORDERED: DUONEB NEB SCH (22:00)
[2016-11-22 22:49] VITALS: BMI 23.6
[2016-11-23 04:30] LABS: PROTHROMBIN TIME 17.8 SEC (9.3-11.0)
[2016-11-23 04:42] LABS: ANION GAP 11.6; BUN/CREATININE RATIO 31.31; CALCIUM 8.4 mg/dL (8.2-10.2); CREATININE 0.99 mg/dL (0.60-1.10); POTASSIUM 3.6 mmol/L (3.5-5.1)
[2016-11-23 04:44] LABS: TROPONIN I 0.05 ng/ml (0.0000-0.4000)
[2016-11-23] MEDS: DUONEB NEB SCH ×4 (04:48→23:03)
[2016-11-23 04:50] LABS: BASOPHILS % (AUTO) 0.2 % (0.0-3.0); EOSINOPHILS # (AUTO) 0.2 K/ul (0.0-0.7); EOSINOPHILS % (AUTO) 1.3 % (0.0-7.0); HEMOGLOBIN 11.6 g/dl (14.0-18.0); IMMATURE GRANULOCYTE % (AUTO) 0.6 % (0.0-5.0); LYMPHOCYTES # (AUTO) 2.2 K/uL (0.60-3.4); LYMPHOCYTES % (AUTO) 13.1 (10.0-50.0); MEAN CORPUSCULAR HEMOGLOBIN 28.7 pg (27.0-31.0); MEAN CORPUSCULAR HGB CONC 32.2 (31.8-35.4); MEAN CORPUSCULAR VOLUME 89.1 fl (80.0-94.0); MONOCYTES # (AUTO) 1.4 K/uL (0.4-2.0); MONOCYTES % (AUTO) 8.1 (0-10); NEUTROPHILS # (AUTO) 13.2 K/ul (2.0-6.9); NEUTROPHILS % (AUTO) 76.7; PLATELET COUNT 239 10^3/uL (140-440); RED BLOOD COUNT 4.04 10^6/ul (4.70-6.10); WHITE BLOOD COUNT 17.16 K/ul (4.2-10.2)
[2016-11-23] MEDS ORDERED: PROTONIX ONE (06:00)
[2016-11-23] MEDS: SODIUM CHLORIDE 1,000 ML IV SCH ×2 (06:13→13:59)
[2016-11-23] MEDS ORDERED: PROTONIX PO SCH ×2 (06:30→09:00)
[2016-11-23] MEDS ORDERED: HYTRIN PO SCH (09:00)
[2016-11-23 12:16] LABS: TROPONIN I 0.031 ng/ml (0.0000-0.4000)
[2016-11-23] MEDS ORDERED: MEDROL DOSEPAK PO SCH (13:30)
[2016-11-23] MEDS: ROCEPHIN 1 GM in SODIUM CHLORIDE 100 ML IV SCH (13:58)
[2016-11-23] MEDS: MEDROL DOSEPAK PO SCH ×3 (14:04→20:47)
[2016-11-23] MEDS: HYTRIN PO SCH (14:06)
--- NOTE | 2016-11-23 14:45 | HP ---
DATE OF SERVICE: 11/22/16 SUBJECTIVE: The patient came to the emergency room and was seen by Dr. Bethea. The patient has been feeling weak and tired, recently admitted to [facility] for pneumonia on 10/19/16 for pneumonia. At that time it showed worsening lung mass and after that, the patient has seen the home energy rater and they did not do any aggressive management for that. Ever since, the patient has been weak and tired with some confusion present. He was evaluated by Dr. Bethea. CT of the head showed age appropriate atropy with chronic microvascular disease; ASVD; benign sinus disease. No findings of stroke. CT of chest again showed left lower lobe mass which is concerning for malignancy with left pleural effusion and increasing size of mediastinal lymph nodes concerning for metastatic disease.. White count 19,000. Urine is negative for any infection. ABG showed pH 7.510, pc02 38.6, p02 56. D. dimer is 5.64. At that time, the patient is admitted for observation and IV fluids. REVIEW OF SYSTEMS: CONSTITUTIONAL: Weakness and tiredness. Fever. HEENT: Normal. ENDOCRINE: No weight gain, no weight loss. CVS: No angina symptoms. No CHF symptoms. No palpitations. No atypical chest pain for CAD. Shortness of breath. No PND, no orthopnea. RESPIRATORY: Cough. No hemoptysis. GI: Poor appetite. No nausea, no vomiting. No abdominal pain. : No hematuria. No polyuria. MUSCULOSKELETAL:. No joint swelling. PSYCHIATRIC: Not anxious. No depression. No suicidal thoughts. No homicidal thoughts. SKIN: Intact. No rash. PAST MEDICAL HISTORY: History of bilateral cataracts, more than 15 years ago Skin cancer CABG 7 to 8 years ago Atrial fibrillation Constipation Osteoarthritis Anemia requiring transfusions PAST SURGICAL HISTORY: Appendectomy Cataract removal Tonsillectomy and adenoidectomy Hernia Hemorrhoids SOCIAL HISTORY: ; two sons; one living, one of NH. Former smoker, does not smoke now. No alcohol use. Family History: Ovarian CA. MEDICATIONS (HOME): Amlodipine/Atorvastatin one each p.o. daily Terazosin/Hytrin 5 mg p.o. daily K-Tab one tab p.o. daily Protonix 40 mg p.o. q.d a.c. Furosemide 40 mg p.o. q.d a.c. Warfarin 3 mg p.o. q.p.m. Nitroglycerin 0.4 mg SL p.r.n. Ipratropium one vial neb RT q.8hr PHYSICAL EXAMINATION: V/S: BP 118/60, respiratory rate 22, heart rate 99, temperature 97.5. Height 6' ; weight 174 lbs, 8 oz. GENERAL: Ill-appearing gentleman sitting in the bed. HEENT: Normocephalic, atraumatic. Mucosa dry. NECK: Supple. No JVD, no carotid bruit. No lymphadenopathy. LUNGS: Decreased air entry. Clear to auscultation. No rales or rhonchi. HEART: S1, S2 normal. No S3. No murmur, gallop or regurgitation. ABDOMEN: Soft, nontender. Bowel sounds active. No rigidity. No rebound or guarding. No CVA tenderness. EXTREMITIES: No clubbing, cyanosis or pedal edema. MUSCULOSKELETAL: No joint swelling. NEUROLOGIC: Awake, alert, oriented times three. No focal deficit. LYMPHATIC: No lymph nodes palpable. SKIN: Intact. LABS: White count 19.92, hemoglobin 14.0, hematocrit 42.4, platelet count 274. Sodium 140, potassium 4.0, chloride 97, bicarb 35, BUN 36, creatinine 1.20. ASSESSMENT: 1. DEHYDRATION 2. ACUTE ON CHRONIC RENAL FAILURE 3. 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 CAD 5. CHF 6. HISTORY OF BYPASS SURGERY 7. ATRIAL FIBRILLATION PLAN: 1. Admit the patient for observation 2. IV fluids 3. PT/INR daily 4. Continue Coumadin 5. Duonebs 6. I will follow with the patient in daily rounds TIME SPENT: More than 30 minutes ELIDIA
--- NOTE | 2016-11-23 14:50 | PN ---
DATE OF SERVICE: 11/23/16 SUBJECTIVE: The patient is sitting at bedside eating breakfast. He feels better today. He says that he could not take it at home anymore, was getting weaker and more tired, unable to do any work or errands at home so came to the emergency room. No fever or chills since admission. REVIEW OF SYSTEMS: CONSTITUTIONAL: Weak and tired. No fever, no chills. HEENT: Normal. ENDOCRINE: No weight gain, no weight loss. CVS: No angina symptoms. No CHF symptoms. No palpitations. No atypical chest pain for CAD. No shortness of breath. No PND, no orthopnea. RESPIRATORY: No cough, no hemoptysis. GI: No nausea, no vomiting. No abdominal pain. : No hematuria. No polyuria. MUSCULOSKELETAL:. No joint swelling. PSYCHIATRIC: Not anxious. No depression. No suicidal thoughts. No homicidal thoughts. SKIN: Intact. No rash. PHYSICAL EXAMINATION: V/S: BP 118/60, respiratory rate 22, heart rate 99, temperature 97.6. HEENT: Normocephalic, atraumatic. Mucosa dry. NECK: Supple. No JVD, no carotid bruit. No lymphadenopathy. LUNGS: Decreased entry. Clear to auscultation. No rales or rhonchi. HEART: S1, S2 normal. No S3. No murmur, gallop or regurgitation. ABDOMEN: Soft, nontender. Bowel sounds active. No rigidity. No rebound or guarding. No CVA tenderness. EXTREMITIES: No clubbing, cyanosis or pedal edema. MUSCULOSKELETAL: No joint swelling. NEUROLOGIC: Awake, alert, oriented times three. No focal deficit. LYMPHATIC: No lymph nodes palpable. SKIN: Intact. LABS: Sodium 141, potassium 3.6, chloride 103, bicarb 30, BUN 31, creatinine 0.99. White count 17.16, hemoglobin is 11.6, hematocrit is 30.0, platelet count 239. ASSESSMENT: 1. DEHYDRATION, WHICH IS BETTER 2. WORSENING LUNG MASS 3. WEAKNESS AND FAILURE TO THRIVE 4. HYPERTENSION 5. CHF 6. CORONARY ARTERY DISEASE 7. ATRIAL FIBRILLATION PLAN: 1. residential evaluation 2. Continue PT/INR on Coumadin 3. Out of bed to chair 4. Activity as tolerated 5. Breathing treatments 6. Will follow with the patient in daily rounds TIME SPENT: More than 30 minutes MTDD
--- NOTE | 2016-11-23 14:52 | PN ---
DATE OF SERVICE: 11/22/16 SUBJECTIVE: The patient came to the emergency room and was seen by Dr. Bethea. The patient has been feeling weak and tired, recently admitted to [facility] for pneumonia on 10/19/16 for pneumonia. At that time it showed worsening lung mass and after that, the patient has seen the dental hygiene instructor and they did not do any aggressive management for that. Ever since, the patient has been weak and tired with some confusion present. He was evaluated by Dr. Bethea. CT of the head, CT of chest did not show any acute findings. Again, showed left lower lobe mass which is concerning for malignancy with left pleural effusion and increasing size of mediastinal lymph nodes concerning for metastatic disease. CT of the head did not show any stroke. White count 19,000. Urine is negative for any infection. ABG showed pH 7.510, pc02 38.6, p02 56. D. dimer is 5.64. At that time, the patient is admitted for observation and IV fluids. REVIEW OF SYSTEMS: CONSTITUTIONAL: Weakness and tiredness. No fever, no chills. HEENT: Normal. ENDOCRINE: No weight gain, no weight loss. CVS: No angina symptoms. No CHF symptoms. No palpitations. No atypical chest pain for CAD. No shortness of breath. No PND, no orthopnea. RESPIRATORY: No cough, no hemoptysis. GI: No nausea, no vomiting. No abdominal pain. : No hematuria. No polyuria. MUSCULOSKELETAL:. No joint swelling. PSYCHIATRIC: Not anxious. No depression. No suicidal thoughts. No homicidal thoughts. SKIN: Intact. No rash. PHYSICAL EXAMINATION: V/S: BP 118/60, respiratory rate 22, heart rate 99, temperature 97.5. GENERAL: Ill-appearing gentleman sitting in the bed. HEENT: Normocephalic, atraumatic. Mucosa dry. NECK: Supple. No JVD, no carotid bruit. No lymphadenopathy. LUNGS: Decreased air entry. Clear to auscultation. No rales or rhonchi. HEART: S1, S2 normal. No S3. No murmur, gallop or regurgitation. ABDOMEN: Soft, nontender. Bowel sounds active. No rigidity. No rebound or guarding. No CVA tenderness. EXTREMITIES: No clubbing, cyanosis or pedal edema. MUSCULOSKELETAL: No joint swelling. NEUROLOGIC: Awake, alert, oriented times three. No focal deficit. LYMPHATIC: No lymph nodes palpable. SKIN: Intact. LABS: White count 19.92, hemoglobin 14.0, hematocrit 42.4, platelet count 274. Sodium 140, potassium 4.0, chloride 97, bicarb 35, BUN 36, creatinine 1.20. ASSESSMENT: 1. DEHYDRATION 2. ACUTE ON CHRONIC RENAL FAILURE 3. 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 CAD 5. CHF 6. HISTORY OF BYPASS SURGERY 7. ATRIAL FIBRILLATION PLAN: 1. Admit the patient for observation 2. IV fluids 3. PT/INR daily 4. Continue Coumadin 5. Duonebs 6. I will follow with the patient in daily rounds TIME SPENT: More than 30 minutes MTDManuel
[2016-11-23] MEDS: COUMADIN PO SCH (16:54)
[2016-11-23] MEDS ORDERED: NON-FORMULARY MEDICATION (Warfarin Sodium [Coumadin] 4 MG) PO SCH ×22 (17:00)
[2016-11-23] MEDS ORDERED: NON-FORMULARY MEDICATION (Warfarin Sodium [Coumadin] 3 MG) PO SCH ×22 (17:00)
[2016-11-24] MEDS: DUONEB NEB SCH ×4 (05:09→23:09)
[2016-11-24] MEDS: MEDROL DOSEPAK PO SCH ×4 (06:05→20:01)
[2016-11-24] MEDS: PROTONIX PO SCH (06:05)
[2016-11-24 07:31] LABS: PROTHROMBIN TIME 21.2 SEC (9.3-11.0)
[2016-11-24 07:47] LABS: BASOPHILS % (AUTO) 0.2 % (0.0-3.0); EOSINOPHILS % (AUTO) 0.1 % (0.0-7.0); HEMATOCRIT 35.7 % (42.0-52.0); HEMOGLOBIN 11.8 g/dl (14.0-18.0); IMMATURE GRANULOCYTE % (AUTO) 0.6 % (0.0-5.0); LYMPHOCYTES # (AUTO) 0.7 K/uL (0.60-3.4); LYMPHOCYTES % (AUTO) 5.6 (10.0-50.0); MEAN CORPUSCULAR HEMOGLOBIN 29.1 pg (27.0-31.0); MEAN CORPUSCULAR HGB CONC 33.1 (31.8-35.4); MEAN CORPUSCULAR VOLUME 88.1 fl (80.0-94.0); MONOCYTES # (AUTO) 0.4 K/uL (0.4-2.0); MONOCYTES % (AUTO) 3.2 (0-10); NEUTROPHILS % (AUTO) 90.3; PLATELET COUNT 238 10^3/uL (140-440); RED BLOOD COUNT 4.05 10^6/ul (4.70-6.10)
[2016-11-24 07:48] LABS: WHITE BLOOD COUNT 12.12 K/ul (4.2-10.2)
[2016-11-24 07:54] LABS: ANION GAP 13.3; BUN/CREATININE RATIO 25.88; CALCIUM 8.6 mg/dL (8.2-10.2); CREATININE 0.85 mg/dL (0.60-1.10); POTASSIUM 4.3 mmol/L (3.5-5.1)
[2016-11-24] MEDS: ROCEPHIN 1 GM in SODIUM CHLORIDE 100 ML IV SCH (08:07)
[2016-11-24] MEDS: HYTRIN PO SCH (08:07)
[2016-11-24] MEDS: COUMADIN PO SCH (17:17)
[2016-11-24] MEDS: SODIUM CHLORIDE 1,000 ML IV SCH (18:06)
[2016-11-25 04:44] LABS: BASOPHILS % (AUTO) 0.1 % (0.0-3.0); EOSINOPHILS % (AUTO) 0.2 % (0.0-7.0); HEMATOCRIT 36.5 % (42.0-52.0); HEMOGLOBIN 11.8 g/dl (14.0-18.0); IMMATURE GRANULOCYTE % (AUTO) 0.7 % (0.0-5.0); LYMPHOCYTES # (AUTO) 0.7 K/uL (0.60-3.4); LYMPHOCYTES % (AUTO) 4.4 (10.0-50.0); MEAN CORPUSCULAR HEMOGLOBIN 28.8 pg (27.0-31.0); MEAN CORPUSCULAR HGB CONC 32.3 (31.8-35.4); MONOCYTES # (AUTO) 0.7 K/uL (0.4-2.0); MONOCYTES % (AUTO) 3.9 (0-10); NEUTROPHILS % (AUTO) 90.7; PLATELET COUNT 279 10^3/uL (140-440); WHITE BLOOD COUNT 16.54 K/ul (4.2-10.2)
[2016-11-25 04:55] LABS: PROTHROMBIN TIME 25.2 SEC (9.3-11.0)
[2016-11-25 05:07] LABS: ANION GAP 12.4; BUN/CREATININE RATIO 31.7; CALCIUM 8.6 mg/dL (8.2-10.2); CREATININE 0.82 mg/dL (0.60-1.10); POTASSIUM 4.4 mmol/L (3.5-5.1)
[2016-11-25] MEDS: DUONEB NEB SCH ×4 (05:15→23:07)
[2016-11-25] MEDS: PROTONIX PO SCH (05:31)
[2016-11-25] MEDS: MEDROL DOSEPAK PO SCH ×4 (05:32→20:08)
[2016-11-25] MEDS: ROCEPHIN 1 GM in SODIUM CHLORIDE 100 ML IV SCH (08:07)
[2016-11-25] MEDS: HYTRIN PO SCH (08:08)
[2016-11-25] MEDS: SODIUM CHLORIDE 1,000 ML IV SCH (16:21)
[2016-11-25] MEDS: COUMADIN PO SCH (17:12)
[2016-11-26 04:52] LABS: BASOPHILS % (AUTO) 0.1 % (0.0-3.0); EOSINOPHILS # (AUTO) 0.1 K/ul (0.0-0.7); EOSINOPHILS % (AUTO) 0.4 % (0.0-7.0); HEMOGLOBIN 11.9 g/dl (14.0-18.0); IMMATURE GRANULOCYTE % (AUTO) 0.8 % (0.0-5.0); LYMPHOCYTES % (AUTO) 5.9 (10.0-50.0); MEAN CORPUSCULAR HEMOGLOBIN 28.8 pg (27.0-31.0); MEAN CORPUSCULAR HGB CONC 32.2 (31.8-35.4); MEAN CORPUSCULAR VOLUME 89.6 fl (80.0-94.0); MONOCYTES # (AUTO) 0.9 K/uL (0.4-2.0); MONOCYTES % (AUTO) 5.5 (0-10); NEUTROPHILS # (AUTO) 13.9 K/ul (2.0-6.9); NEUTROPHILS % (AUTO) 87.3; PLATELET COUNT 287 10^3/uL (140-440); RED BLOOD COUNT 4.13 10^6/ul (4.70-6.10); WHITE BLOOD COUNT 15.98 K/ul (4.2-10.2)
[2016-11-26 05:03] LABS: PROTHROMBIN TIME 27.9 SEC (9.3-11.0)
[2016-11-26] MEDS: DUONEB NEB SCH (05:04)
[2016-11-26 05:19] LABS: ANION GAP 11.5; BUN/CREATININE RATIO 26.82; CALCIUM 8.5 mg/dL (8.2-10.2); CREATININE 0.82 mg/dL (0.60-1.10); POTASSIUM 4.5 mmol/L (3.5-5.1)
[2016-11-26] MEDS: PROTONIX PO SCH (05:47)
[2016-11-26] MEDS: MEDROL DOSEPAK PO SCH ×3 (05:47→21:06)
[2016-11-26] MEDS ORDERED: XOPENEX 1.25 MG NEB ONE (07:28)
[2016-11-26] MEDS ORDERED: LASIX IVP STA (08:17)
[2016-11-26] MEDS ORDERED: DECADRON 4 MG/ML SDV IM STA (08:18)
[2016-11-26] MEDS: ROCEPHIN 1 GM in SODIUM CHLORIDE 100 ML IV SCH (08:49)
[2016-11-26] MEDS: MUCINEX PO SCH ×2 (08:50→21:06)
[2016-11-26] MEDS ORDERED: CITRATE OF MAGNESIA PO ONE (09:00)
[2016-11-26] MEDS: HYTRIN PO SCH (09:01)
[2016-11-26] MEDS: XOPENEX 1.25 MG NEB SCH ×4 (09:21→23:14)
--- NOTE | 2016-11-26 11:01 | PCM.PROG ---
Attending Provider: ATTENDING PROVIDER: Dr. JUICE LR DATE OF SERVICE: 11/26/16 SUBJECTIVE: This 86 year old WHITE/ M was hospitalized 11/22/16. The patient states he is having a little trouble breathing, refused Duonebs as he thought that made it worse. Xopenex was tried and he feels that has helped. He has some problems getting sputum up will give Mucinex. He has been ambulatory with steady gait. REVIEW OF SYSTEMS: CONSTITUTIONAL: No fever, no chills. ENDOCRINE: No weight loss or weight gain. HEENT: No sinus drainage, no sore throat. CVS: No angina symptoms. No CHF symptoms. No palpitations. No atypical chest pain for CAD. Shortness of breath. RESPIRATORY: Cough. No hemoptysis. GI: No melena. No abdominal pain. No nausea, no vomiting. : No hematuria. No polyuria. SKIN: No rash. No wounds. MUSCULOSKELETAL: No pain. MOUNTER BRASS WIND INSTRUMENTS: No blackout, no dizziness. No headache. No double vision. PSYCHIATRIC: Not anxious; no depression. No suicidal thoughts. No homicidal thoughts. PHYSICAL EXAMINATION: GENERAL: Lying in bed in no distress. VITAL SIGNS: Temperature 97.6 F, Pulse 80, Respiratory Rate 18, BP 139/68, Pulse Ox 95% HEENT: Normocephalic, atraumatic. Mucosa is dry, pallor positive. NECK: No JVP, no carotid bruit. No lymphadenopathy. CARDIAC: S1, S2, no S3. No murmur, gallop or regurgitation. LUNGS: Bibasilar crackles. Decreased air entry. ABDOMEN: Soft, non-tender. Bowel sounds active. No rigidity, guarding or CVA tenderness. EXTREMITIES: No clubbing, cyanosis or edema. NEUROLOGIC: Awake, alert and oriented x3. LYMPHATIC: No palpable lymph nodes SKIN: Not dry. Intact. MUSCULOSKELETAL: No joint swelling. LAB REVIEW: 11/26/16 04:49 11/26/16 04:49 11/26/16 04:49: WBC 15.98 H, RBC 4.13 L, Hgb 11.9 L, Hct 37.0 L, MCV 89.6, MCH 28.8, MCHC 32.2, RDW Coeff of Meli 15.2 H, Plt Count 287, Immature Gran % (Auto) 0.8, Neut % (Auto) 87.3, Lymph % (Auto) 5.9 L, Brooks % (Auto) 5.5, Eos % (Auto) 0.4, Baso % (Auto) 0.1, Immature Gran # (Auto) 0.1, Neut # 13.9 H, Lymph # 1.0, Brooks # 0.9, Eos # 0.1, Baso # 0.0, PT 27.9 H, INR 2.71, Sodium 141, Potassium 4.5, Chloride 107, Carbon Dioxide 27, Anion Gap 11.5, BUN 22 H, Creatinine 0.82 , Estimated GFR (MDRD) 89.00, BUN/Creatinine Ratio 26.82, Glucose 152 H, Calcium 8.5 ASSESSMENT: 1. Dehydration, resolved 2. Acute on chronic renal failure 3. Acute bronchitis 4. Worsening lung mass most likely malignancy 5. CAD 6. CHF 7. History of bypass surgery 8. Atrial fibrillation PLAN: 1. Chest x-ray 2. Mucinex 600 mg b.i.d. 3. Lasix 20 mg IV push 4 Decadron 1 cc 5. Discuss chcf placement for PT Plan and coordination of the patient's care discussed in the presence of Aircraft Steel Fabricator and nurse. CONDITION: Stable SCRIBED BY: OTONIEL LOUISE, Ribbon Hand scribed while in presence of service performed by Dr. JUICE LR on 11/26/16 ([id number])
--- NOTE | 2016-11-26 14:28 | DI ---
EXAM: Chest two view, frontal and lateral views. HISTORY: Shortness of breath. COMPARISON: 11/22/2016. FINDINGS: Median sternotomy wires are present. Heart size is normal. Atherosclerotic calcificatio ns are present. Rounded mass-like consolidation of left lower lobe noted along with small left pleu ral effusion. There appears to be new bibasilar consolidation as well. IMPRESSION: 1. Suspect new bibasilar pneumonia. 2. Redemonstration of left lower lobe mass-like consolidation and small left pleural effusion.
[2016-11-26] MEDS: COUMADIN PO SCH (17:39)
[2016-11-27] MEDS: XOPENEX 1.25 MG NEB SCH ×2 (04:52→11:03)
[2016-11-27 05:13] LABS: BASOPHILS % (AUTO) 0.1 % (0.0-3.0); EOSINOPHILS % (AUTO) 0.1 % (0.0-7.0); HEMATOCRIT 37.1 % (42.0-52.0); IMMATURE GRANULOCYTE % (AUTO) 0.8 % (0.0-5.0); LYMPHOCYTES # (AUTO) 1.1 K/uL (0.60-3.4); LYMPHOCYTES % (AUTO) 7.1 (10.0-50.0); MEAN CORPUSCULAR HEMOGLOBIN 28.7 pg (27.0-31.0); MEAN CORPUSCULAR HGB CONC 32.3 (31.8-35.4); MEAN CORPUSCULAR VOLUME 88.8 fl (80.0-94.0); MONOCYTES # (AUTO) 0.9 K/uL (0.4-2.0); MONOCYTES % (AUTO) 5.8 (0-10); NEUTROPHILS # (AUTO) 13.8 K/ul (2.0-6.9); NEUTROPHILS % (AUTO) 86.1; PLATELET COUNT 279 10^3/uL (140-440); RED BLOOD COUNT 4.18 10^6/ul (4.70-6.10); WHITE BLOOD COUNT 16.07 K/ul (4.2-10.2)
[2016-11-27 05:26] LABS: PROTHROMBIN TIME 26.3 SEC (9.3-11.0)
[2016-11-27] MEDS: PROTONIX PO SCH (05:29)
[2016-11-27] MEDS: MEDROL DOSEPAK PO SCH (05:30)
[2016-11-27 05:36] LABS: ANION GAP 9.5; BUN/CREATININE RATIO 26.13; CALCIUM 8.8 mg/dL (8.2-10.2); CREATININE 0.88 mg/dL (0.60-1.10); POTASSIUM 4.5 mmol/L (3.5-5.1)
[2016-11-27] MEDS ORDERED: LASIX IVP STA (08:14)
--- NOTE | 2016-11-27 08:20 | PN ---
DATE OF SERVICE: 11/23/16 SUBJECTIVE: The patient is sitting at the bedside and eating the breakfast. He feels better today. He says that he could not take it at home anymore was getting more weak and tired and not able to do any work or errands at the home so came to the emergency room. No fever or chills ever since admission. REVIEW OF SYSTEMS: CONSTITUTIONAL: No fever, no chills. HEENT: Normal. ENDOCRINE: No weight gain, no weight loss. CVS: No angina symptoms. No CHF symptoms. No palpitations. No atypical chest pain for CAD. No shortness of breath. No PND, no orthopnea. RESPIRATORY: No cough, no hemoptysis. GI: No nausea, no vomiting. No abdominal pain. : No hematuria. No polyuria. MUSCULOSKELETAL:. No joint swelling. PSYCHIATRIC: Not anxious. No depression. No suicidal thoughts. No homicidal thoughts. SKIN: Intact. No rash. PHYSICAL EXAMINATION: V/S: Blood pressure 118/60, respiratory 22, heart rate 99 and temperature 97.6. HEENT: Normocephalic, atraumatic. Ears, eyes, nose and throat normal. Mucosa dry. NECK: Supple. No JVD, no carotid bruit. No lymphadenopathy. LUNGS: Decreased and clear to auscultation. No rales or rhonchi. HEART: S1, S2 normal. No S3. No murmur, gallop or regurgitation. ABDOMEN: Soft, nontender. Bowel sounds active. No rigidity. No rebound or guarding. No CVA tenderness. EXTREMITIES: No clubbing, cyanosis or pedal edema. MUSCULOSKELETAL: No joint swelling. NEUROLOGIC: Awake, alert, oriented times three. No focal deficit. LYMPHATIC: No lymph nodes palpable. SKIN: Intact. LABS: Sodium 141, potassium 3.6, chloride 103, bicarb 20, BUN 31, creatinine 0.99, WBC 17.16, hgb 11.6, hct 30.0, plt count 239. ASSESSMENT: 1. Dehydration which is better 2. Worsening lung mass 3. Weakness 4. Failure to thrive 5. Hypertension 6. Congestive heart failure 7. Coronary artery disease. 8. Atrial fibrillation. PLAN: 1. penitentiary evaluation 2. Continue the Coumadin 3. Out of the bed to chair 4. Activity as tolerated 5. Breathing treatments Will follow the patient in daily rounds. TIME SPENT: More than 30 minutes MTDManuel
[2016-11-27] MEDS: MUCINEX PO SCH (08:41)
[2016-11-27] MEDS: HYTRIN PO SCH (08:41)
[2016-11-27] MEDS: ROCEPHIN 1 GM in SODIUM CHLORIDE 100 ML IV SCH (08:42)
--- NOTE | 2016-11-27 09:46 | PN ---
DATE OF SERVICE: 11/24/16 SUBJECTIVE: The patient is lying the bed and says that he is feeling a little better and was able to walk. REVIEW OF SYSTEMS: CONSTITUTIONAL: No fever, no chills. HEENT: Normal. ENDOCRINE: No weight gain, no weight loss. CVS: No angina symptoms. No CHF symptoms. No palpitations. No atypical chest pain for CAD. No shortness of breath. No PND, no orthopnea. RESPIRATORY: Some cough, no hemoptysis. GI: No nausea, no vomiting. No abdominal pain. : No hematuria. No polyuria. MUSCULOSKELETAL:. No joint swelling. PSYCHIATRIC: Not anxious. No depression. No suicidal thoughts. No homicidal thoughts. SKIN: Intact. No rash. PHYSICAL EXAMINATION: V/S: Blood pressure 121/73, respiratory rate 80, heart rate 88 and temperature 97.4. HEENT: Normocephalic, atraumatic. Ears, eyes, nose and throat normal. Mucosa dry. Pallor positive. No icterus. NECK: Supple. No JVD, no carotid bruit. No lymphadenopathy. LUNGS: Bilaterally entry is decreased with basilar crackles. No rales or rhonchi. HEART: S1, S2 normal. No S3. No murmur, gallop or regurgitation. ABDOMEN: Soft, nontender. Bowel sounds active. No rigidity. No rebound or guarding. No CVA tenderness. EXTREMITIES: No clubbing, cyanosis or pedal edema. MUSCULOSKELETAL: No joint swelling. NEUROLOGIC: Awake, alert, oriented times three. No focal deficit. LYMPHATIC: No lymph nodes palpable. SKIN: Intact. LABS: WBC 12.12, hgb 11.8, hct 37.7, plt count 234, sodium 139, potassium 4.3, chloride 103, bicarb 27, BUN 22 and creatinine 0.85. ASSESSMENT: 1. Upper respiratory infection 2. Pneumonitis 3. Worsening lung mass, most likely malignancy 4. History of hypertension 5. Dyslipidemia 6. CABG 7. Coronary artery disease PLAN: 1. Continue the Rocephin 2. Continue PT/INR and will manage the Coumadin dosage 3. Out of bed to chair activity as much as tolerated. TIME SPENT: More than 30 minutes MTDD
[2016-11-27 11:16] VITALS: BP 127/73; TEMP 97.8
--- NOTE | 2016-11-27 11:18 | PCM.PROG ---
Attending Provider: ATTENDING PROVIDER: Dr. JUICE LR DATE OF SERVICE: 11/27/16 SUBJECTIVE: This 86 year old WHITE/ M was hospitalized 11/22/16. The patient states he feels better today. He has some cough, no phlegm. No fever, no chills. No PND no orthopnea. REVIEW OF SYSTEMS: CONSTITUTIONAL: No fever, no chills. ENDOCRINE: No weight loss or weight gain. HEENT: No sinus drainage, no sore throat. CVS: No angina symptoms. No CHF symptoms. No palpitations. No atypical chest pain for CAD. No shortness of breath. RESPIRATORY: No cough, no hemoptysis. GI: No melena. No abdominal pain. No nausea, no vomiting. : No hematuria. No polyuria. SKIN: No rash. No wounds. MUSCULOSKELETAL: No pain. HANGER: No blackout, no dizziness. No headache. No double vision. PSYCHIATRIC: Depression. Not anxious. No suicidal thoughts. No homicidal thoughts. PHYSICAL EXAMINATION: GENERAL: Lying in bed in no distress. VITAL SIGNS: Temperature 96.8 F, Pulse 92, Respiratory Rate 20, BP 126/77, Pulse Ox 99% HEENT: Normocephalic, atraumatic. Mucosa is dry, pallor positive. NECK: No JVP, no carotid bruit. No lymphadenopathy. CARDIAC: S1, S2, no S3. No murmur, gallop or regurgitation. LUNGS: Decreased entry with basilar crackles and wheeze. ABDOMEN: Soft, non-tender. Bowel sounds active. No rigidity, guarding or CVA tenderness. EXTREMITIES: No clubbing, cyanosis or edema. NEUROLOGIC: Awake, alert and oriented x3. LYMPHATIC: No palpable lymph nodes SKIN: Not dry. Intact. MUSCULOSKELETAL: No joint swelling. LAB REVIEW: 11/27/16 05:13 11/27/16 05:13 11/27/16 05:13: WBC 16.07 H, RBC 4.18 L, Hgb 12.0 L, Hct 37.1 L, MCV 88.8, MCH 28.7, MCHC 32.3, RDW Coeff of Meli 15.4 H, Plt Count 279, Immature Gran % (Auto) 0.8, Neut % (Auto) 86.1, Lymph % (Auto) 7.1 L, [place] % (Auto) 5.8, Eos % (Auto) 0.1, Baso % (Auto) 0.1, Immature Gran # (Auto) 0.1, Neut # 13.8 H, Lymph # 1.1, [place] # 0.9, Eos # 0.0, Baso # 0.0, PT 26.3 H, INR 2.55, Sodium 140, Potassium 4.5, Chloride 102, Carbon Dioxide 33 H, Anion Gap 9.5, BUN 23 H, Creatinine 0.88 , Estimated GFR (MDRD) 82.00, BUN/Creatinine Ratio 26.13, Glucose 138 H, Calcium 8.8 ASSESSMENT: 1. Dehydration, resolved 2. Acute on chronic renal failure 3. Acute bronchitis 4. Worsening lung mass most likely malignancy 5. CAD 6. CHF 7. History of bypass surgery 8. Atrial fibrillation 9. Depression, stable PLAN: 1. Discharge home 2. Lasix 20 mg IV push 3. Resume home medications 4. FPC placement 5. Keflex 500 mg b.i.d. for 5 days 6. Continue Medrol Dosepak 7. Continue breathing treatments t.i.d. 8. CBC, CMP in one week then every three months 9. Continue home medications Plan and coordination of the patient's care discussed in the presence of Classified Advertising Supervisor and nurse. CONDITION: Stable SCRIBED BY: OTONIEL LOUISE Innovation Manager scribed while in presence of service performed by Dr. JUICE LR on 11/27/16 ([id number])
--- NOTE | 2016-11-27 11:30 | CM.DICTOOL ---
ADMISSION: 11/22/16 21:40 DISCHARGE: 11/27/16 TO [facility] DATE OF SERVICE: 11/27/16 FINAL DIAGNOSIS ACUTE ON CHRONIC RENAL FAILURE ACUTE BRONCHITIS, IMPROVED DEHYDRATION, RESOLVED ENLARGING LUNG MASS, MOST LIKELY MALIGNANCY (DR. BURCIAGA) INTERVAL INCREASING SIZE OF MEDIASTINAL LYMPH NODES CONCERNING FOR MALIGNANCY ( CT 11/26/16) SQUAMOUS CELL CARCINOMA, LIP CAD S/P CABG CHF ATRIAL FIBRILLATION HYPERTENSION DYSLIPIDEMIA HYPOTHYROIDISM CVA DVT BY HISTORY CATARACT EXTRACTIONS TONSILLECTOMY VASECTOMY APPENDECTOMY LAST VITALS Temp Pulse Resp BP Pulse Ox 96.8 F L 96 H 20 126/77 99 11/27/16 05:02 11/27/16 08:00 11/27/16 05:02 11/27/16 05:02 11/27/16 05:02 ACTIVE MEDICATIONS Amlodipine/Atorvastatin 5-20 mg 1 each PO DAILY [facility] Furosemide (Lasix) 40 mg PO QDAC [facility] Ipratropium/Albuterol Neb (Duoneb) 1 vial NEB Q8H [facility] Methylprednisolone (Medrol Dosepak) 4 mg PO 0630 BERNARDA (NEW) PRN Reason: Taper Stop: 11/28/16 09:59 Last Admin: 11/27/16 05:30 Dose: 4 mg Nitroglycerin 0.4 mg SL PRN PRN Chest Pain Pantoprazole Sodium (Protonix) 40 mg PO QDAC [facility] Last Admin: 11/27/16 05:29 Dose: 40 mg Potassium Chloride (K-tab) 1 Tab PO DAILY Terazosin HCl (Hytrin) 5 mg PO DAILY [facility] Last Admin: 11/27/16 08:41 Dose: 5 mg Warfarin Sodium (Coumadin) 3 mg PO QPM [facility] Last Admin: 11/26/16 17:39 Dose: 3 mg ALLERGIES No Known Allergies Allergy (Verified 11/22/16 19:41) NEW PRESCRIPTIONS: MEDROL DOSEPAK (HOSPITAL SUPPLY WILL BE SENT-- TODAY IS DAY 5 OUT OF 6 DAYS) KEFLEX 500 MG PO Q 12 HOURS X 5 (FIVE) DAYS SMOKING: NONSMOKER LAB REVIEW: 11/27/16 05:13 11/27/16 05:13 11/27/16 05:13: WBC 16.07 H, RBC 4.18 L, Hgb 12.0 L, Hct 37.1 L, MCV 88.8, MCH 28.7, MCHC 32.3, RDW Coeff of Meli 15.4 H, Plt Count 279, Immature Gran % (Auto) 0.8, Neut % (Auto) 86.1, Lymph % (Auto) 7.1 L, [place] % (Auto) 5.8, Eos % (Auto) 0.1, Baso % (Auto) 0.1, Immature Gran # (Auto) 0.1, Neut # 13.8 H, Lymph # 1.1, Hopkins # 0.9, Eos # 0.0, Baso # 0.0, PT 26.3 H, INR 2.55, Sodium 140, Potassium 4.5, Chloride 102, Carbon Dioxide 33 H, Anion Gap 9.5, BUN 23 H, Creatinine 0.88 , Estimated GFR (MDRD) 82.00, BUN/Creatinine Ratio 26.13, Glucose 138 H, Calcium 8.8 PLAN: DISCHARGE TO [facility] TODAY DR. FRYE/ADELINE WILL FOLLOW THIS PATIENT AT THE RETIREMENT DURING USUAL RETIREMENT ROUNDS IN APPROX ONE WEEK RESUME HOME MEDICATIONS PER LIST PROVIDED BY THE NURSING STAFF NEW MEDICATIONS: MEDROL DOSEPAK (HOSPITAL SUPPLY WILL BE SENT-- TODAY IS DAY 5 OUT OF 6 DAYS) KEFLEX 500 MG PO Q 12 HOURS X 5 (FIVE) DAYS LABS: CBC WITH DIFF AND CMP IN ONE WEEK THEN Q 3 MONTHS PT/INR IN ONE WEEK THEN MONTHLY DIET: TOLERATED LEAD FORMER PLEASE EVALUATE FOR APPROPRIATE DIETARY NEEDS ACTIVITY: MAY PARTICIPATE IN RETIREMENT ACTIVITY PROGRAM TOLERATED PT/OT PLEASE EVALUATE AND TREAT INDICATED OTHER ORDERS: PULSE OXIMETRY PRN OXYGEN AT 2L/NC TO KEEP SATS 91% OR GREATER SUMMARY: THE PATIENT IS ALERT AND ORIENTED X3. CURRENTLY HE RESIDES AT HOME ALONE. HIS FAMILY IS SUPPORTIVE OF HIS NEEDS WHEN NECESSARY. HE WOULD LIKE TO RETURN TO HIS HOME SOON POSSIBLE, BUT IS AWARE OF HIS NEED FOR STRENGTHENING AND GAIT SUPPORT THROUGH A REHABILITATIVE PROGRAM. MR. TERAN HAS CHOSEN [facility] FOR THESE SERVICES. HIS SKIN TURGOR IS INTACT. THERE ARE NO DECUBITUS ULCERS PRESENT AT DISCHARGE. HIS HYDRATION STATUS IS IMPROVED. MR. TERAN HAS SHOWN GOOD CLINICAL PROGRESS DURING HIS HOSPITAL STAY. HE IS AWARE AND AGREEABLE FOR TODAY'S DISCHARGE PLANS. JUICE LR M.D.
--- NOTE | 2016-11-30 12:56 | PN ---
DATE OF SERVICE: 11/25/16 SUBJECTIVE: The patient was admitted with a upper respiratory infection and worsening lung mass. He is sitting in the bed and not in any distress. He says that he is feeling fine. REVIEW OF SYSTEMS: CONSTITUTIONAL: No fever, no chills. Some weakness. HEENT: Normal. ENDOCRINE: No weight gain, no weight loss. CVS: No angina symptoms. No CHF symptoms. No palpitations. No atypical chest pain for CAD. No shortness of breath. No PND, no orthopnea. RESPIRATORY: No cough, no hemoptysis. GI: No nausea, no vomiting. No abdominal pain. Eating good. : No hematuria. No polyuria. MUSCULOSKELETAL:. No joint swelling. PSYCHIATRIC: Not anxious. No depression. No suicidal thoughts. No homicidal thoughts. SKIN: Intact. No rash. PHYSICAL EXAMINATION: V/S: Blood pressure 143/75, respiratory rate 16, heart rate 76 and temperature 97.1. HEENT: Normocephalic, atraumatic. Ears, eyes, nose and throat normal. Mucosa dry. Pallor positive. No icterus. NECK: Supple. No JVD, no carotid bruit. No lymphadenopathy. LUNGS: Decreased and Clear to auscultation. No rales or rhonchi. HEART: S1, S2 normal. No S3. No murmur, gallop or regurgitation. ABDOMEN: Soft, nontender. Bowel sounds active. No rigidity. No rebound or guarding. No CVA tenderness. EXTREMITIES: No clubbing, cyanosis or pedal edema. MUSCULOSKELETAL: No joint swelling. NEUROLOGIC: Awake, alert, oriented times three. No focal deficit. LYMPHATIC: No lymph nodes palpable. SKIN: Intact. LABS: WBC 16.254, hgb 11.8, hct 36.5, plt count 279, sodium 140, potassium 4.4, chloride 106, bicarb 26, BUN 26 and creatinine 0.82. ASSESSMENT: 1. Upper respiratory infection 2. Worsening lung mass 3. Coronary artery disease, bypass surgery 4. Hypertension 5. Dyslipidemia 6. Anemia PLAN: 1. Continue the Rocephin 2. DUO NEBS 3. Methylprednisolone 4mg PO 4. Will stop the IV fluids 5. Out of bed to chair Will follow the patient in daily rounds. TIME SPENT: More than 30 minutes MTDD
--- NOTE | 2016-12-12 13:41 | DS ---
DATE OF SERVICE: 11/27/16 FINAL DIAGNOSIS: 1. ACUTE ON CHRONIC RENAL FAILURE 2. ACUTE BRONCHITIS, IMPROVED 3. DEHYDRATION, RESOLVED 4. ENLARGING LUNG MASS, MOST LIKELY MALIGNANCY (DR. BURCIAGA) 5. INTERVAL INCREASING SIZE OF MEDIASTINAL LYMPH NODES CONCERNING FOR MALIGNANCY (CT 11/26/16) 6. SQUAMOUS CELL CARCINOMA LIP 7. CORONARY ARTERY DISEASE, STATUS POST CABG 8. CHF 9. ATRIAL FIBRILLATION 10. HYPERTENSION 11. DYSLIPIDEMIA 12. HYPOTHYROIDISM 13. 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 CATARACT EXTRACTIONS 16. TONSILLECTOMY 17. VASECTOMY 18. APPENDECTOMY LAST V/S: Temperature 96.8, pulse 96, respiratory rate 20, BP 126/77, pulse ox 99 DISCHARGE INSTRUCTIONS: 1. Discharge to [facility] today. 2. Dr. Doan/Claudia will follow this patient at the retirement during usual retirement rounds in approximately one week. 3. CBC with differnetial and CMP in one week then q.3 months 4. PT/INR in one week then monthly 5. Pulse oximetry p.r.n. 6. Oxygen at 2L/NC to keep sats 91% or greater MEDICATIONS AT DISCHARGE: Terazosin (Hytrin) 5 mg p.o. daily Potassium Chloride (K-Tab) 10 mEq one tab p.o. daily Amlodipine/Atorvastatin one each p.o. daily Warfarin (Coumadin) 3 mg p.o. q.p.m. Furosemide (Lasix) 40 mg p.o. q.d a.c. Nitroglycerin 0.4 mg SL p.r.n. Pantoprazole (Protonix) 40 mg p.o. q.d.a.c. Ipratropium/Albuterol one vial neb RT q.8hr NEW PRESCRIPTIONS: Medrol Dosepak (hospital supply will be sent -- today is day 5 out of 6 days) Keflex 500 mg p.o. q.12hr times five days DIET INSTRUCTIONS: As tolerated. Radioactivity Technician please evaluate for appropriate dietary needs. ACTIVITY: May participate in retirement activity program as tolerated. PT/OT please evaluate and treat as indicated. SMOKING: Nonsmoker DISEASE SPECIFIC EDUCATION: Renal failure Bronchitis Medications Activity/PT/OT [facility]DC placement for strengthening HOSPITAL COURSE: The patient was admitted with weakness, tiredness, acute bronchitis and worsening lung mass. He was started on IV fluids, antibiotic Rocephin along with breathing treatments. Gradually he started feeling better. He did have much weakness which gradually improved with IV fluids, antibiotics and steroids. CT scan of the chest, which was showing worsening lung mass for which the patient has seen Dr. Burciaga and Dr. Burciaga doesn't want to do a biopsy given condition and was looking more like lung cancer. The patient lives alone and has no way he can survive by himself as the patient was weak and needing some help. Evaluated him for retirement placement for which he qualified. The patient will be sent to [facility] today. As of today, the patient is awake, alert, had some mild wheezing otherwise more active at the given time. TIME SPENT: More than 15 minutes today. ELIDIA
== END 2016-11-27 13:37 | disposition home or self-care (01) | DRG 202 ==
LOC: ED 19:07 → MEDSURG B 21:40 → OBSVTOIN 21:40
PROVIDERS: ADMIT Emergency Medicine; ATTEND Emergency Medicine
DX: J20.9 Acute bronchitis, unspecified (principal); N17.9 Acute kidney failure, unspecified; N18.9 Chronic kidney disease, unspecified; R06.02 Shortness of breath; I48.91 Unspecified atrial fibrillation; E86.0 Dehydration; R91.8 Other nonspecific abnormal finding of lung field; R59.0 Localized enlarged lymph nodes; R53.1 Weakness; R41.82 Altered mental status, unspecified; I10 Essential (primary) hypertension; R50.9 Fever, unspecified; I70.90 Unspecified atherosclerosis; I50.9 Heart failure, unspecified; I65.23 Occlusion and stenosis of bilateral carotid arteries; I25.10 Atherosclerotic heart disease of native coronary artery without angina pectoris; E78.5 Hyperlipidemia, unspecified; E03.9 Hypothyroidism, unspecified; R62.7 Adult failure to thrive; Z79.01 Long term (current) use of anticoagulants; Z79.899 Other long term (current) drug therapy; Z87.891 Personal history of nicotine dependence; Z95.1 Presence of aortocoronary bypass graft; Z86.718 Personal history of other venous thrombosis and embolism; Z85.828 Personal history of other malignant neoplasm of skin
CPT/HCPCS: 36415; 80048; 80053; 81001; 82550; 82803; 83605; 83880; 84145; 84484; 85025; 85379; 85610; 87040; 93005; 93010; 94640; 96360; 99284